=== PATIENT | male | born 1940 | race Caucasian/White ===

== ENCOUNTER 2018-05-21 18:38 | Inpatient (IN) | payer MEDICARE, MEDICAID ==
[~2018-05-21] VITALS: Ht 170.2 cm; Wt 80.0 kg
[~2018-05-21 18:38] MED LIST: ACET-820 PO; ACET325T33 PO; AMIO200T4 PO; AMIO400T5 PO; ASPI-817 PO; CHOL200056 PO; DIGO125T19 PO; FURO20TA3 PO; MAGN400T28 PO; METO-335 PO; PANT40TA3 PO; POTA10TA37 PO; TEST1.25 TD; TRAZ-111 PO; WARF2.5T PO; WARF5TAB PO
[2018-05-21] MEDS ORDERED: ACETAMINOPHEN 325 MG TAB PO PRN ×2 (19:00→22:08)
[2018-05-21] MEDS ORDERED: MAGNESIUM HYDROXIDE 30ML CUP PO PRN (19:00)
[2018-05-21] MEDS ORDERED: PENDING SANTYL ORDER FOR WOUND CARE XX PRN (19:00)
[2018-05-21] MEDS ORDERED: BISACODYL 10 MG SUPP PR PRN (19:00)
[2018-05-21] MEDS ORDERED: LACTULOSE 30ML CUP PO PRN (19:00)
--- NOTE | 2018-05-21 19:39 | NUR ---
Patient Admitted from [facility]. patient is alert and breathing even. no SOB. no c/o pain at this time. Verified rehab orders with Dr. Dejesus and all meds verified with Dr. Swanson (Hospitalist).
[2018-05-21 20:00] VITALS: BP 119/63; PULSE 119; RESP 18
[2018-05-21] MEDS ORDERED: DOCUSATE SODIUM 100 MG CAP PO SCH (21:00)
[2018-05-21 21:15] VITALS: Ht 170.2 cm; Wt 80.0 kg
[2018-05-21] MEDS ORDERED: HYDROCODONE/APAP (5/325) TAB PO PRN (22:08)
[2018-05-21] MEDS ORDERED: ONDANSETRON 4 MG INJ IV PRN (22:08)
[2018-05-21] MEDS ORDERED: NALOXONE (0.4 MG/ML) INJ IV PRN (22:08)
[2018-05-21] MEDS ORDERED: NACL 0.9% 3 ML SYG IV SCH (22:08)
[2018-05-21] MEDS ORDERED: morphine 4 MG/ML VIAL IV PRN (22:08)
[2018-05-21] MEDS: morphine SULFATE/PF (2 MG/2 ML) SYG IV PRN (22:43)
[2018-05-21] MEDS: SENNA TAB PO SCH (22:43)
[2018-05-22 02:06] VITALS: BP 141/71; PULSE 63; RESP 18
[2018-05-22] MEDS: PANTOPRAZOLE (EC) 40 MG TAB PO SCH (06:32)
--- NOTE | 2018-05-22 07:00 | NUR ---
End of Shift Note During the shift. Assessment was done. He is cooperative during the assessment. Photos taken for skin assessment. Wound consult needed. Pain medication given an it was effective. He slept well. Bed on lowest position, side rails up 2x, bed alarm on. Call light within reach. will continue to monitor.
[2018-05-22 07:30] VITALS: BP 169/74; PULSE 84; RESP 18
[2018-05-22] MEDS: AMIODARONE 200 MG TAB PO SCH (08:05)
[2018-05-22] MEDS: morphine SULFATE/PF (2 MG/2 ML) SYG IV PRN ×4 (08:05→22:55)
[2018-05-22] MEDS: DOCUSATE SODIUM 100 MG CAP PO SCH ×2 (08:06→21:12)
[2018-05-22] MEDS: METOPROLOL (XL) 25 MG TAB PO SCH ×2 (08:06→21:12)
[2018-05-22] MEDS: ENOXAPARIN 40 MG/0.4 ML SYG SC SCH (08:07)
--- NOTE | 2018-05-22 08:43 | PN ---
DATE: 05/22/2018 SUBJECTIVE: The patient was transferred to acute rehabilitation. No other acute events noted. OBJECTIVE: VITAL SIGNS: Blood pressure is 141/71, respiration 18, pulse 63, temperature 97.9. HEENT: Head is normocephalic. NECK: Supple. HEART: Regular rate. LUNGS: Show diminished breath sounds at base. ABDOMEN: Soft, nontender to palpation without rebound or guarding. EXTREMITIES: Negative for clubbing, cyanosis, no edema. DERMATOLOGIC: No rashes. MUSCULOSKELETAL: No joint effusions. NEUROLOGIC: No change in exam. MEDICATIONS: Reviewed. LABORATORY DATA: Pending. ASSESSMENT AND PLAN: 1. Nonoliguric acute kidney injury with unknown baseline creatinine. Renal function is improved, et iology secondary to hemodynamics. Will continue to monitor. 2. Anemia. Continue monitoring hemoglobin and hematocrit levels. Check iron panel. 3. Mineral bone disorder, monitor calcium and phosphorus levels. 4. Alkalosis, resolved. 5. Status post left hip arthroplasty. Continue physical therapy. 6. Hypertension. Continue blood pressure regimen. 7. Arrhythmia. Continue medical management. 8. Hypomagnesemia. Continue to monitor and replete. Dictated By: CHARLY WSAHINGTON DO NR/NTS Conf#: [id number] DID#: [id number] CC: ASLHEY SHAH MD;*EndCC*
[2018-05-22] MEDS: BISACODYL (EC) 5 MG TAB PO PRN (09:25)
[2018-05-22 14:00] VITALS: BP 115/60; PULSE 71; RESP 20
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
[2018-05-22] MEDS: CIPROFLOXACIN 500 MG TAB PO SCH (17:14)
[2018-05-22] MEDS: WARFARIN 5 MG TAB PO SCH (17:14)
[2018-05-22] MEDS: ASCORBIC ACID 500 MG TAB PO SCH (17:14)
[2018-05-22 19:43] VITALS: BP 140/66; PULSE 88; RESP 18
[2018-05-22] MEDS: SENNA TAB PO SCH (21:00)
[2018-05-22] MEDS ORDERED: CIPROFLOXACIN 500 MG TAB PO SCH (22:12)
[2018-05-23 02:00] VITALS: BP 122/71; RESP 18
[2018-05-23] MEDS: CIPROFLOXACIN 500 MG TAB PO SCH ×2 (06:11→17:47)
[2018-05-23] MEDS: PANTOPRAZOLE (EC) 40 MG TAB PO SCH (06:11)
[2018-05-23 07:00] VITALS: BP 152/70; PULSE 66; RESP 18
[2018-05-23] MEDS: morphine SULFATE/PF (2 MG/2 ML) SYG IV PRN ×4 (07:03→21:08)
--- NOTE | 2018-05-23 08:12 | NUR ---
Pt slept well during night hours, c/o pain over left hip, Inj.Morphine 3mg IV Q3hrs prn pain x 2 times given. No other complaints noted. Vital signs stable. Pt able to turn position by self with assist. Turned position as per pt's comfort. Left hip dressing dry and intact. Continent for bladder and bowel, uses urinal for voiding, no BM noted. Pt is on low air loss mattress. IV on the left wrist, patent, flushing good, no s/s of infiltration noted. Bed alarm activated for safety, call light and bedside table within reach.
--- NOTE | 2018-05-23 10:01 | PN ---
DATE: 05/23/2018 SUBJECTIVE: The patient is stable. No events overnight. No fevers, chills, nausea, vomiting. OBJECTIVE: VITAL SIGNS: Blood pressure 122/71, respiration 18, pulse 88, temperature 98.3. HEENT: Head is normocephalic. NECK: Supple. HEART: Regular rate. LUNGS: Show diminished breath sounds at the base. ABDOMEN: Soft, nontender to palpation without rebound or guarding. EXTREMITIES: Negative for clubbing, cyanosis, no edema. DERMATOLOGIC: No rashes. MUSCULOSKELETAL: No joint effusion. NEUROLOGIC: No change in exam. MEDICATIONS: Reviewed. LABORATORY DATA: From 05/23/2018 and 05/22/2018 was reviewed. ASSESSMENT AND PLAN: 1. Nonoliguric acute previously unknown baseline creatinine, probable chronic kidney disease. Renal function has improved. Creatinine is stabilized around 1.2 mg/dL. At this point, continue current treatment plan, supportive care, renally dose all meds. 2. Anemia. Continue to monitor hemoglobin and hematocrit levels. 3. Mineral bone disorder. Monitor calcium and phosphorus levels. 4. Status post left knee arthroplasty. Continue physical therapy. 5. Hypertension. Continue blood pressure regimen. 6. Arrhythmia, continue medical management. 7. Hypomagnesemia. Continue to monitor and replete. Dictated By: CHARLY WASHINGTON DO NR/NTS Conf#: [id number] DID#: [id number] CC: ASHLEY SHAH MD;*EndCC*
[2018-05-23] MEDS: MULTIVITAMINS/MINERALS TAB PO SCH (10:21)
[2018-05-23] MEDS: FOLIC ACID 1 MG TAB PO SCH (10:22)
[2018-05-23] MEDS: DOCUSATE SODIUM 100 MG CAP PO SCH ×2 (10:22→21:07)
[2018-05-23] MEDS: ZINC SULFATE 220 MG CAP PO SCH (10:22)
[2018-05-23] MEDS: AMIODARONE 200 MG TAB PO SCH (10:22)
[2018-05-23] MEDS: METOPROLOL (XL) 25 MG TAB PO SCH ×2 (10:23→21:00)
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
[2018-05-23] MEDS: OXYCODONE/ACETAMINOPHEN (10/325) TAB PO PRN (12:42)
[2018-05-23 14:00] VITALS: BP 94/52; PULSE 61; RESP 18
[2018-05-23] MEDS: ENOXAPARIN 40 MG/0.4 ML SYG SC SCH (15:12)
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
[2018-05-23] MEDS: ASCORBIC ACID 500 MG TAB PO SCH (17:47)
[2018-05-23] MEDS: WARFARIN 2.5 MG TAB PO SCH (17:48)
[2018-05-23 19:27] VITALS: BP 119/58; PULSE 59; RESP 19
[2018-05-23] MEDS: SENNA TAB PO SCH (21:07)
[2018-05-23] MEDS: BALSAM PERU/CASTOR OIL 60 GM TUBE TOP SCH (22:45)
[2018-05-24 02:00] VITALS: BP 131/68; PULSE 90; RESP 19
[2018-05-24] MEDS: morphine 4 MG/ML VIAL IV PRN ×5 (02:42→20:23)
[2018-05-24] MEDS: PANTOPRAZOLE (EC) 40 MG TAB PO SCH (05:47)
[2018-05-24] MEDS: CIPROFLOXACIN 500 MG TAB PO SCH ×2 (05:47→18:57)
--- NOTE | 2018-05-24 06:57 | NUR ---
Pt stable with no acute distress noted. Due medications given and all needs attended. Pain medications given for pain with relief. Pt continent of both bowel and bladder and able to use urinal. Safety measures in place. Hourly rounding made. Bed alarm activated for safety. bed side rails up and call light within pt's reach.
[2018-05-24 07:00] VITALS: BP 142/61; PULSE 61; RESP 16
--- NOTE | 2018-05-24 08:23 | PN ---
DATE: 05/24/2018 SUBJECTIVE: The patient is stable, no events overnight. OBJECTIVE: VITAL SIGNS: Blood pressure is 131/68, respiration 19, pulse 90, temperature 98.4. HEENT: Head is normocephalic. NECK: Supple. HEART: Regular rate. LUNGS: Show diminished breath sounds at base. ABDOMEN: Soft, nontender to palpation without rebound or guarding. EXTREMITIES: Negative for clubbing, cyanosis, no edema. DERMATOLOGIC: No rashes. MUSCULOSKELETAL: No joint effusion. NEUROLOGIC: No change in exam. MEDICATIONS: Reviewed. LABORATORY DATA: Has been reviewed. ASSESSMENT AND PLAN: 1. Nonoliguric acute kidney injury with unknown baseline creatinine, possible chronic kidney disease . Renal function is improved. Creatinine stabilized around 1.1 and 1.2 mg/dL. At this point, jocy usltanae current treatment plans, supportive care, renally dose all meds. 2. Anemia. Monitor hemoglobin and hematocrit levels. 3. Mineral bone disorder. Monitor calcium and phosphorus levels. 4. Status post left hip arthroplasty. Continue physical therapy. 5. Hypertension. Continue current blood pressure regimen. 7. Arrhythmia. Continue medical management. 8. Hypomagnesemia, improved. We will see the patient as needed. Dictated By: CHARLY WASHINGTON DO NR/NTS Conf#: [id number] DID#: [id number] CC: ASHLEY SHAH MD;*EndCC*
[2018-05-24] MEDS: DOCUSATE SODIUM 100 MG CAP PO SCH ×2 (08:59→20:48)
[2018-05-24] MEDS: FOLIC ACID 1 MG TAB PO SCH (09:00)
[2018-05-24] MEDS: METOPROLOL (XL) 25 MG TAB PO SCH ×2 (09:00→20:49)
[2018-05-24] MEDS: AMIODARONE 200 MG TAB PO SCH (09:00)
[2018-05-24] MEDS: ZINC SULFATE 220 MG CAP PO SCH (09:00)
[2018-05-24] MEDS: MULTIVITAMINS/MINERALS TAB PO SCH (09:01)
[2018-05-24] MEDS: ENOXAPARIN 40 MG/0.4 ML SYG SC SCH (09:05)
[2018-05-24] MEDS: BALSAM PERU/CASTOR OIL 60 GM TUBE TOP SCH ×2 (09:05→20:49)
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
[2018-05-24] MEDS: OXYCODONE/ACETAMINOPHEN (10/325) TAB PO PRN ×2 (13:23→18:58)
[2018-05-24 14:00] VITALS: BP 105/53; PULSE 80; RESP 18
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
[2018-05-24] MEDS: ASCORBIC ACID 500 MG TAB PO SCH (17:14)
--- NOTE | 2018-05-24 18:00 | NUR ---
Nursing Notes: patient seen by Dr. John Swanson this afternoon, all lab test MD was aware , No new orders
[2018-05-24] MEDS: WARFARIN 5 MG TAB PO SCH (18:57)
--- NOTE | 2018-05-24 19:00 | NUR ---
Nursing Notes: surgical incision dressing remain dry and intact. RN endorsed to Sangeetha ( RN- Surveillance Sensor Officer ) to report to the incoming RN ( AM Shift ) that patient needs incision photograph which can be done if dressing is soiled or saturated.
[2018-05-24 19:51] VITALS: BP 162/88; PULSE 88; RESP 18
[2018-05-24] MEDS: SENNA TAB PO SCH (20:48)
[2018-05-24] MEDS ORDERED: morphine SULFATE/PF (2 MG/2 ML) SYG IV PRN (23:32)
[2018-05-25 02:00] VITALS: BP 132/72; PULSE 79; RESP 18
[2018-05-25] MEDS: OXYCODONE/ACETAMINOPHEN (10/325) TAB PO PRN (03:51)
--- NOTE | 2018-05-25 06:30 | NUR ---
Slept on and off. Medicated for left hip pain prn with good effect. Voiding well using urinal. Needs attended. Call light within reached, bed alarm is activated. No acute distress noted.
[2018-05-25] MEDS: PANTOPRAZOLE (EC) 40 MG TAB PO SCH (07:06)
[2018-05-25] MEDS: CIPROFLOXACIN 500 MG TAB PO SCH ×2 (07:06→17:00)
[2018-05-25] MEDS: morphine 4 MG/ML VIAL IV PRN ×4 (07:27→17:12)
[2018-05-25 07:30] VITALS: BP 130/60; PULSE 55; RESP 18
[2018-05-25] MEDS: BALSAM PERU/CASTOR OIL 60 GM TUBE TOP SCH ×2 (08:17→20:22)
[2018-05-25] MEDS: FOLIC ACID 1 MG TAB PO SCH (08:18)
[2018-05-25] MEDS: MULTIVITAMINS/MINERALS TAB PO SCH (08:18)
[2018-05-25] MEDS: DOCUSATE SODIUM 100 MG CAP PO SCH ×2 (08:18→20:22)
[2018-05-25] MEDS: AMIODARONE 200 MG TAB PO SCH (08:22)
[2018-05-25] MEDS: METOPROLOL (XL) 25 MG TAB PO SCH ×2 (09:00→20:22)
[2018-05-25] MEDS: ZINC SULFATE 220 MG CAP PO SCH (10:05)
[2018-05-25] MEDS: ENOXAPARIN 40 MG/0.4 ML SYG SC SCH (10:08)
[2018-05-25 11:41] VITALS: BP 98/66; PULSE 63
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
[2018-05-25 14:00] VITALS: BP 106/54; PULSE 62; RESP 18
[2018-05-25] MEDS: ASCORBIC ACID 500 MG TAB PO SCH (17:01)
[2018-05-25] MEDS: WARFARIN 2.5 MG TAB PO SCH (17:48)
--- NOTE | 2018-05-25 18:44 | NUR ---
Belén held due to low BP today, but VSS. Participated in therapies. Left hip dressing C/D/I; not changed per Dr. Castaneda's order. Coumadin 2.5mg given per order. Pt is in agreement with plan of care.
[2018-05-25 19:50] VITALS: BP 119/65; PULSE 68; RESP 18
[2018-05-25] MEDS: SENNA TAB PO SCH (20:22)
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
[2018-05-26] MEDS: morphine 4 MG/ML VIAL IV PRN ×7 (01:39→20:52)
[2018-05-26 02:00] VITALS: BP 128/67; PULSE 64; RESP 18
--- NOTE | 2018-05-26 05:24 | NUR ---
Pt stable with no acute distress noted. Due medications given and all needs attended. Pt slept on and off at night due to left hip pain. Pain medications given for pain with relief. Pt continent of both bowel and bladder and able to use urinal. Safety measures in place. Hourly rounding made. Bed alarm activated for safety. bed side rails up and call light within pt's reach.
[2018-05-26] MEDS: CIPROFLOXACIN 500 MG TAB PO SCH ×2 (06:07→17:04)
[2018-05-26] MEDS: PANTOPRAZOLE (EC) 40 MG TAB PO SCH (06:07)
[2018-05-26 07:00] VITALS: BP 122/60; PULSE 67; RESP 18
[2018-05-26] MEDS: METOPROLOL (XL) 25 MG TAB PO SCH ×2 (08:16→21:00)
[2018-05-26] MEDS: FOLIC ACID 1 MG TAB PO SCH (08:16)
[2018-05-26] MEDS: ZINC SULFATE 220 MG CAP PO SCH (08:16)
[2018-05-26] MEDS: AMIODARONE 200 MG TAB PO SCH (08:16)
[2018-05-26] MEDS: MULTIVITAMINS/MINERALS TAB PO SCH (08:16)
[2018-05-26] MEDS: DOCUSATE SODIUM 100 MG CAP PO SCH ×2 (08:16→20:44)
[2018-05-26] MEDS: BALSAM PERU/CASTOR OIL 60 GM TUBE TOP SCH ×2 (08:17→20:45)
[2018-05-26] MEDS: ENOXAPARIN 40 MG/0.4 ML SYG SC SCH (08:18)
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
[2018-05-26 14:00] VITALS: BP 113/59; PULSE 60; RESP 18
[2018-05-26] MEDS: ASCORBIC ACID 500 MG TAB PO SCH (17:04)
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
[2018-05-26] MEDS: WARFARIN 2.5 MG TAB PO SCH (17:23)
--- NOTE | 2018-05-26 17:54 | NUR ---
Patient is alert and breathing even. no SOB. patient c/o pain on left hip s/p surgery. Morphine IV given and was effective. patient with incontinent dermatitis with dry macerated skin tissue applied calazime as ordered. left heel dti dressing change done. treatment done as ordered. patient is cooperative during care.
[2018-05-26 19:50] VITALS: BP 96/52; PULSE 55; RESP 18
[2018-05-26] MEDS: SENNA TAB PO SCH (20:44)
[2018-05-27] VITALS (9 sets, daily range): BP systolic 98–135; BP diastolic 50–65; PULSE 50–66; RESP 16–20
[2018-05-27] MEDS: morphine 4 MG/ML VIAL IV PRN (00:35)
--- NOTE | 2018-05-27 06:00 | NUR ---
End of Shift Note During the shift. Morphine, pain medication administered 2x thrue the shift. They were effective. Pt slept around 2 AM. At 0600, pt was too sleepy to take his medicines but still taken them. Bed on lowest position, side rails up 2x, bed alarm on. Call light within reach. will continue to monitor.
[2018-05-27] MEDS: CIPROFLOXACIN 500 MG TAB PO SCH ×3 (06:17→21:04)
[2018-05-27] MEDS: PANTOPRAZOLE (EC) 40 MG TAB PO SCH (06:17)
--- NOTE | 2018-05-27 07:54 | PN ---
DATE: 05/27/2018 SUBJECTIVE: The patient is stable, no acute events noted overnight. No hemoptysis, hematemesis, or hematochezia. OBJECTIVE: VITAL SIGNS: Blood pressure is 98/50, respirations 18, pulse 71, temperature 97.9. HEENT: Head is normocephalic. NECK: Supple. HEART: Regular rate. LUNGS: Show diminished breath sounds at the base. ABDOMEN: Soft, nontender to palpation, no rebound or guarding. EXTREMITIES: Negative for clubbing, cyanosis, no edema. DERMATOLOGIC: No rashes. MUSCULOSKELETAL: No joint effusion. NEUROLOGIC: No change in exam. MEDICATIONS: Reviewed. LABORATORY DATA: On 05/26/2018, sodium 139, potassium 4.1, BUN 25, creatinine 1.31. ASSESSMENT AND PLAN: 1. Nonoliguric acute kidney injury with unknown baseline creatinine, possible chronic kidney disease . Etiology of renal function is secondary to hemodynamics. Creatinine is fluctuating. Last creatin ine was 1.3 mg/dL, possibly the patient's baseline. At this point, we will continue medical manageme nt. Repeat renal panel, monitor renal function closely. 2. Anemia. Continue to monitor hemoglobin and hematocrit levels. 3. Mineral bone disorder, monitor calcium and phosphorus levels. 4. Status post left hip arthroplasty. 5. Hypertension. Blood pressure is well controlled. Monitor closely for hypertensive episodes. We will place parameters on blood pressure medications. 6. Arrhythmia. Continue medical management. The patient is on Coumadin per primary team. 7. Hypomagnesemia, improved. 8. Diastolic heart failure, currently compensated. Dictated By: CHARLY WASHINGTON DO NR/NTS Conf#: [id number] DID#: [id number] CC: GALILEA CORDOBA MD; ASHLEY SHAH MD;*EndCC*
[2018-05-27] MEDS: FOLIC ACID 1 MG TAB PO SCH (09:00)
[2018-05-27] MEDS: MULTIVITAMINS/MINERALS TAB PO SCH (09:00)
[2018-05-27] MEDS: DOCUSATE SODIUM 100 MG CAP PO SCH ×2 (09:00→21:05)
[2018-05-27] MEDS: BALSAM PERU/CASTOR OIL 60 GM TUBE TOP SCH ×2 (09:00→21:05)
[2018-05-27] MEDS: ZINC SULFATE 220 MG CAP PO SCH (09:00)
[2018-05-27] MEDS: AMIODARONE 200 MG TAB PO SCH (09:00)
[2018-05-27] MEDS: ENOXAPARIN 40 MG/0.4 ML SYG SC SCH (09:00)
[2018-05-27] MEDS: METOPROLOL (XL) 25 MG TAB PO SCH ×2 (09:00→21:00)
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
--- NOTE | 2018-05-27 12:38 | NUR ---
Nursing Notes: patient received sleeping soundly, not in any respiratory distress, VS was checked - stable ( see VS record ) Dr. Dejesus and Dr. Bunch seen patient and informed that patient is lethargic this morning and @ 1000H remain sleepy but this time easily arousable. Dr. Bunch will review patient's medication. Dr. Dejesus discontinue the Morphine IV PRN medication. Will continue to monitor patient's condition.
[2018-05-27] MEDS ORDERED: OXYCODONE/ACETAMINOPHEN (5/325) TAB PO PRN (13:00)
--- NOTE | 2018-05-27 14:02 | PN ---
Date/Time of Note Date/Time of Note DATE: 05/27/18 TIME: 14:00 Objective Vital Signs Date Temp Pulse Resp B/P (MAP) Pulse Ox O2 O2 Flow FiO2 Time Delivery Rate 05/27/18 66 18 135/58 99 Nasal 10:00 (83) Cannula 05/27/18 96.6 07:30 Intake and Output 05/26/18 05/26/18 05/27/18 1515:00 23:00 07:00 IntakeIntake Total 2700 ml OutputOutput Total 950 ml BalanceBalance 1750 ml Exam Physical Exam: Pulm-cta Abd-soft BOWEL- Cont BLADDER-Cont SKIN- intact OT- DRESSING- min/mod BATHING-min/mod TOILETING-min/mod PT- BED MOBILITY-mod TRANSFERS-mod AMBULATION-mod 15 feet A/P- Interdisciplinary team conference held today. Please see interdisciplinary sheet. Working toward d.c. on 06/06 with post discharge follow up of physical therapy, occupational therapy. Results/Medications Result Diagram: 05/26/18 0641 05/26/18 0641 Results 24 hrs Laboratory Tests Test 05/27/18 06:43 05/27/18 09:44 Prothrombin Time 13.7 Prothrombin Time Ratio 1.1 INR International Normalized Ratio 1.04 Bedside Glucose 101 Medications Current Medications Senna (Senokot) 1 tab HS PO Last administered on 05/26/18at 20:44; Admin Dose 1 TAB; Start 05/21/18 at 21:00 Magnesium Hydroxide (Milk Of Mag) 30 ml BID PRN PO CONSTIPATION Last administe red on 05/21/18at 22:42; Admin Dose 30 ML; Start 05/21/18 at 19:00 Lactulose (Enulose) 20 gm DAILY PRN PO CONSTIPATION; Start 05/21/18 at 19:00 Bisacodyl (Dulcolax Supp) 10 mg DAILY PRN [place] CONSTIPATION; Start 05/21/18 at 19:00 Acetaminophen (Tylenol Tab) 650 mg Q4H PRN PO PAIN; Start 05/21/18 at 19:00 Miscellaneous Information (Pending [facility] Order For Wound Care) This patient moreno... PRN PRN XX wound; Start 05/21/18 at 19:00 IV Flush (NS 3 ml) 3 ml PER PROTOCOL IV ; Start 05/21/18 at 22:08 Ondansetron HCl (Zofran Inj) 4 mg Q6H PRN IV NAUSEA AND/OR VOMITING; Start 05/21/18 at 22:08 Bisacodyl (Dulcolax) 5 mg DAILY PRN PO CONSTIPATION Last administered on 05/22/18 09:25; Admin Dose 5 MG; Start 05/21/18 at 22:08 Pantoprazole (Protonix Tab) 40 mg DAILY@0600 PO Last administered on 05/27/18 06:17; Admin Dose 40 MG; Start 05/21/18 at 22:08 Metoprolol Succinate (Toprol Xl) 25 mg BID PO Last administered on 05/26/18 08:16; Admin Dose 25 MG; Start 05/21/18 at 22:08 Amiodarone HCl (Cordarone) 200 mg DAILY PO Last administered on 05/26/18 08:16; Admin Dose 200 MG; Start 05/21/18 at 22:08 Naloxone HCl (Narcan) 0.2 mg Q2M PRN IV DECREASED REPIRATORY RATE; Start 05/21/18 at 22:08 Docusate Sodium (Colace) 100 mg BID PO Last administered on 05/26/18at 20:44; Admin Dose 100 MG; Start 05/21/18 at 22:08 Enoxaparin Sodium (Lovenox) 40 mg DAILY SC Last administered on 05/26/18 08:18; Admin Dose 40 MG; Start 05/21/18 at 22:08 Warfarin Sodium (Coumadin) 2.5 mg SuTuThSa@1700 PO Last administered on 05/26/18 17:23; Admin Dose 2.5 MG; Start 05/23/18 at 17:00 Warfarin Sodium (Coumadin) 5 mg MoWeFr@1700 PO Last administered on 05/24/18at 18:57; Admin Dose 5 MG; Start 05/22/18 at 17:00 Ciprofloxacin (Cipro) 500 mg BID@06,18 PO Last administered on 05/27/18 06:17; Admin Dose 500 MG; Start 05/22/18 at 18:00; Stop 05/29/18 at 06:01 Multivitamins/ Minerals (Theragran-M) 1 tab DAILY PO Last administered on 05/26/18 08:16; Admin Dose 1 TAB; Start 05/23/18 at 09:00 Ascorbic Acid (Vitamin C) 500 mg WITH DINNER PO Last administered on 05/26/18at 17:04; Admin Dose 500 MG; Start 05/22/18 at 17:35 Zinc Sulfate (Zinc Sulfate) 220 mg DAILY PO Last administered on 05/26/18at 08:16; Admin Dose 220 MG; Start 05/23/18 at 09:00 Folic Acid (Folic Acid) 1 mg DAILY PO Last administered on 05/26/18at 08:16; Admin Dose 1 MG; Start 05/23/18 at 09:00 Oxycodone/ Acetaminophen (Endocet (10/ 325)) 1 tab Q4H PRN PO PAIN LEVEL 7-10 Last administered on 05/25/18at 03:51; Admin Dose 1 TAB; Start 05/23/18 at 13:00 Oxycodone/ Acetaminophen (Percocet (5/ 325)) 1 tab Q4H PRN PO MODERATE PAIN LEVEL 4-6; Start 05/27/18 at 13:00 ASHLEY SHAH MD May 27, 2018 14:02
[2018-05-27] MEDS: WARFARIN 5 MG TAB PO SCH ×2 (17:00→21:17)
[2018-05-27] MEDS: ASCORBIC ACID 500 MG TAB PO SCH (17:35)
--- NOTE | 2018-05-27 19:00 | NUR ---
Nursing Notes: patient fully awake at 1200H, able to ate his lunch, communicate well with staff, denies any pain, then at dinner time patient noted asleep again, but easily arousable then immediately fall asleep. Refused to take his medicine , verbalized he wants to sleep, medication unable to give due to his condition. Endorsed to [facility] Price for further care.
--- NOTE | 2018-05-27 20:00 | NUR ---
Start of Shift Note During the rounds, pt is asleep on bed in fowlers position but easily arousable. Bed on lowest position, side rails up 2x, bed alarm is on and call light is within reach. will continue to monitor
--- NOTE | 2018-05-27 21:00 | NUR ---
Late medications given During the rounds, pt found awake on bed in fowlers position. He is oriented to people, place and situation. He is a bit confused with time. Coumadin 5 mg PO 1 tab and Ciprofloxacin 500 mg PO given as the AM shift nurse wasn't able to give due to the pt was asleep. Pt asked for IV morphine for pain. D/C medication was explained. Instead, Endocet 10/325 mg 1 tab PO given as PRN medication for given. will continue to monitor
[2018-05-27] MEDS: SENNA TAB PO SCH (21:05)
[2018-05-27] MEDS: OXYCODONE/ACETAMINOPHEN (10/325) TAB PO PRN (21:24)
[2018-05-28] MEDS: OXYCODONE/ACETAMINOPHEN (10/325) TAB PO PRN (02:15)
[2018-05-28 02:43] VITALS: BP 104/66; PULSE 78; RESP 18
[2018-05-28] MEDS: PANTOPRAZOLE (EC) 40 MG TAB PO SCH (06:00)
--- NOTE | 2018-05-28 06:00 | NUR ---
End of Shift Note During the shift, Endocet 10/325 mg PO given in 2 occasions, they were effective. Pt slept around 4 AM. At 0600, pt refused his medicine. Bed on lowest position, side rails up 2x, bed alarm on. Call light within reach. will continue to monitor.
[2018-05-28 07:30] VITALS: BP 102/54; PULSE 58; RESP 16
--- NOTE | 2018-05-28 08:27 | PN ---
DATE: 05/28/2018 SUBJECTIVE: The patient is stable, no events overnight. OBJECTIVE: VITAL SIGNS: Blood pressure is 134/58, pulse 78, respirations 20, temperature 98.0. HEENT: Head is normocephalic. NECK: Supple. HEART: Regular rate. LUNGS: Show diminished breath sounds at the base. ABDOMEN: Soft, nontender to palpation without rebound or guarding. EXTREMITIES: Negative for clubbing, cyanosis, no edema. DERMATOLOGIC: No rashes. MUSCULOSKELETAL: No joint effusion. NEUROLOGIC: No change in exam. MEDICATIONS: Reviewed. LABORATORY DATA: Pending. ASSESSMENT AND PLAN: 1. Nonoliguric acute kidney injury with unknown baseline creatinine, possible chronic kidney disease . Etiology of acute kidney injury was secondary to hemodynamics. The patient's creatinine has been fluctuating. At this point, continue current treatment plans, supportive care, renally dose all medi cines. Follow up renal panel. 2. Anemia. Monitor hemoglobin and hematocrit levels. 3. Mineral bone disorder, monitor calcium and phosphorus levels. 4. Status post left hip arthroplasty. Continue physical therapy. 5. Hypertension. Continue current blood pressure regimen. 6. Arrhythmia. Continue medical management. The patient is on Coumadin. 7. History of diastolic heart failure, currently compensated. Continue to monitor. Dictated By: CHARLY WASHINGTON DO NR/NTS Conf#: [id number] DID#: [id number] CC: GALILEA CORDOBA MD; ASHLEY SHAH MD;*EndCC*
[2018-05-28] MEDS: METOPROLOL (XL) 25 MG TAB PO SCH ×2 (09:00→21:00)
--- NOTE | 2018-05-28 09:26 | NUR ---
Pt very sleepy. Responsive to painful stimulus. Vitals Bp 92/48, RR 17/min, HR 60, O2 sat 98%. RN called Dr. Bunch and for order to give NS bolus and Narcan. Order carried out.
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
[2018-05-28] MEDS ORDERED: SOD CHLORIDE 0.9% 500 ML IV ONE ×2 (10:00→13:30)
[2018-05-28] MEDS ORDERED: NALOXONE (0.4 MG/ML) INJ IV ONE (10:00)
--- NOTE | 2018-05-28 10:10 | NUR ---
PT NOTE [id number] Attempted to see pt for PT. Upon arrival, pt noted sleeping. Attempted to wake up with max V/T stim and sternal rub but had difficulty waking up. Pt slightly opens eyes then quickly goes back to sleep. Checked VS 91/47 HR 56bpm SpO2 98%. Tash HUDDLESTON notified that pt was lethargic.
--- NOTE | 2018-05-28 10:42 | NUR ---
Pt woke up few mins. after IV Narcan 0.4 mg given. He asked for blanket and went back to sleep. Bolus IVF infused. Vitals BP 161/77, HR 74/min, RR 18, o2 sat 98%. Pt responsive to painful stimuli. IV heplock. Will continue to monitor vitals. Percocet tablet discontinued.
--- NOTE | 2018-05-28 10:47 | NUR ---
[facility] PT Weekly Summary Dates From: 05/22/18 to 05/28/18 Patient Name: AYANNA SCOTT MR#: [id number] Height: 5 ft 7 in Weight: 176 lbs 5.917 oz 80.000 kg Reason for Visit: L HIP FRACTURE ORIF Precautions: fall risk, Lt WBAT Date: 05/28/18 Time: 1048 User: KASSY RENE Short-term Goals: Bed Mobility Mod A Transfers Mod A with least restrictive device Gait 25ft Mod A FWW WC mobility Min A 50ft Pt making very conservative progress during his stay at [facility]. Pt currently demonstrates DEP for rolling, Max A for bed mobility; Mod A for transfers, SBA for WC mobility [id number], Mod A for gait 15ft using FWW (most recent transfers/WC mobility/gait was on 05/25/18). Barriers: lethargy, low BP, pain, dec activity tolerance. Recommend: manual WC with swing away leg rests, home with HHPT and 24hr assistance. Cont POC and progress as almaz.
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
[2018-05-28 14:00] VITALS: BP 104/57; PULSE 62; RESP 18
[2018-05-28] MEDS: DOCUSATE SODIUM 100 MG CAP PO SCH ×2 (14:30→21:18)
[2018-05-28] MEDS: MULTIVITAMINS/MINERALS TAB PO SCH (14:30)
[2018-05-28] MEDS: FOLIC ACID 1 MG TAB PO SCH (14:30)
[2018-05-28] MEDS: AMIODARONE 200 MG TAB PO SCH (14:40)
[2018-05-28] MEDS: BALSAM PERU/CASTOR OIL 60 GM TUBE TOP SCH ×2 (14:41→21:19)
[2018-05-28] MEDS: ZINC SULFATE 220 MG CAP PO SCH (14:49)
[2018-05-28] MEDS: ASCORBIC ACID 500 MG TAB PO SCH (18:03)
[2018-05-28] MEDS: CIPROFLOXACIN 500 MG TAB PO SCH (18:03)
--- NOTE | 2018-05-28 18:10 | NUR ---
Coumadin pending from pharmacy. Addendum: 05/28/18 at 2042 by GELY RAGLAND RN ENDORSED TO KARO YOUNG TO PLEASE GIVE COUMADIN TO PT.
[2018-05-28 19:58] VITALS: BP 98/52; PULSE 63; RESP 18
[2018-05-28] MEDS: SENNA TAB PO SCH (21:18)
[2018-05-28] MEDS: WARFARIN 2.5 MG TAB PO SCH (21:18)
[2018-05-29 02:01] VITALS: BP 122/63; PULSE 61; RESP 18
--- NOTE | 2018-05-29 06:00 | NUR ---
End of Shift Note During the shift, Pt slept well. At 0600, he was repositioned with no complaints of pain. Bed on lowest position, side rails up 2x, bed alarm on. Call light within reach. will continue to monitor.
[2018-05-29] MEDS: CIPROFLOXACIN 500 MG TAB PO SCH (06:16)
[2018-05-29 07:00] VITALS: BP 124/61; RESP 18
--- NOTE | 2018-05-29 08:26 | PN ---
DATE: 05/29/2018 SUBJECTIVE: The patient is stable, no events overnight. No fevers, chills, nausea, or vomiting. OBJECTIVE: VITAL SIGNS: Blood pressure is 122/63, pulse 63, respirations 18, temperature 98.2. HEENT: Head is normocephalic. NECK: Supple. HEART: Regular rate. LUNGS: Show diminished breath sounds at the base. ABDOMEN: Soft, nontender to palpation without rebound or guarding. EXTREMITIES: Negative for clubbing, cyanosis, no edema. DERMATOLOGIC: No rashes. MUSCULOSKELETAL: No joint effusions. NEUROLOGIC: No change in exam. MEDICATIONS: Reviewed. LABORATORY DATA: Shows a sodium 138, potassium 4.1, chloride 104, BUN 24, creatinine 1.59. White co unt 4.3, hemoglobin 7.9, platelet count is 251. ASSESSMENT AND PLAN: 1. Nonoliguric acute kidney injury with unknown baseline creatinine possibly chronic kidney disease. Etiology of chronic kidney disease is secondary to hemodynamics. The patient's renal function has declined in the last 24 to 48 hours, likely secondary to volume depletion due to decreased p.o. intak e. The patient is status post IV fluids. We will follow up renal panel. We will monitor closely I' s and O's. If the patient continues to have poor p.o. intake we will consider course of maintenance fluid. 2. Anemia. Continue to monitor hemoglobin and hematocrit levels. 3. Mineral bone disorder. Monitor calcium and phosphorus levels. 4. Status post left hip arthroplasty. Continue physical therapy. 5. History of hypertension. The patient now hypotensive to normotensive. The patient is status pos t IV fluids, continue to monitor. 6. Lethargy, possibly due to hemodynamics versus narcotics. Continue to monitor. Medications have been adjusted. 7. Arrhythmia. Continue medical management. The patient remains on Coumadin. 8. History of diastolic heart failure. Monitor I's and O's closely. Dictated By: CHARLY WASHINGTON DO NR/NTS Conf#: [id number] DID#: [id number] CC: GALILEA CORDOBA MD; ASHLEY SHAH MD;*EndCC*
[2018-05-29] MEDS: METOPROLOL (XL) 25 MG TAB PO SCH ×2 (09:00→20:33)
--- NOTE | 2018-05-29 09:23 | NUR ---
PT NOTE Pt agreeable to be seen by PT. Found sitting in WC. Rest VS 116/65 HR 114bpm, Spo2 95%. Pt performed 2ft of gait using FWW but then reported dizziness. Rechecked VS BP 93/58 HR 138bpm SpO2 96%. Pt assisted BTB. Post BP 99/55 HR 104bpm SpO2 98%. RN notified of findings.
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
[2018-05-29] MEDS: MULTIVITAMINS/MINERALS TAB PO SCH (10:21)
[2018-05-29] MEDS: FOLIC ACID 1 MG TAB PO SCH (10:21)
[2018-05-29] MEDS: ZINC SULFATE 220 MG CAP PO SCH (10:21)
[2018-05-29] MEDS: FAMOTIDINE 20 MG TAB PO SCH (10:21)
[2018-05-29] MEDS: DOCUSATE SODIUM 100 MG CAP PO SCH ×2 (10:22→20:33)
[2018-05-29] MEDS: AMIODARONE 200 MG TAB PO SCH (10:22)
[2018-05-29] MEDS: BALSAM PERU/CASTOR OIL 60 GM TUBE TOP SCH ×2 (10:23→20:35)
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
[2018-05-29] MEDS: HYDROCODONE/APAP (5/325) TAB PO PRN ×2 (13:28→19:26)
[2018-05-29 14:00] VITALS: BP 99/56; PULSE 72; RESP 18
[2018-05-29] MEDS: ASCORBIC ACID 500 MG TAB PO SCH (17:41)
[2018-05-29] MEDS: WARFARIN 5 MG TAB PO SCH (17:41)
--- NOTE | 2018-05-29 18:13 | NUR ---
Patient is alert and breathing even. No SOB. patient c/o pain x1 this am. PRN norco given and was effective. Patient s/p left hip surgery. dressing intact with no s/sx of bleeding. no drainage. Patient stated that he feels better today than yesterday. patient is cooperative during care. call light within reach and reminded patient to call when needed help.
--- NOTE | 2018-05-29 18:57 | CONS ---
DATE OF ADMISSION: 05/21/2018 DATE OF CONSULTATION: 05/29/2018 TYPE OF CONSULTATION: Psychological. REFERRING PHYSICIAN: Ashley Rodriguez MD CONSULTING PSYCHOLOGIST: Madhu Montero, PhD REASON FOR CONSULTATION: This consultation was requested by Dr. Anjelica Rodriguez in order to evaluate t he cognitive and emotional functioning of this patient related to his present medical condition. HISTORY OF PRESENT ILLNESS: The patient is a 77-year-old male. The patient had a mechanical fall an d had a left intertrochanteric hip fracture. The patient was eventually cleared medically and sent t o the acute rehabilitation unit for acute multidisciplinary rehabilitation. Prior to the recent even ts, the patient was independent of self-care tasks and mobility. The patient is motivated to get bet ter and does want to return to his previous level of functioning. FAMILY AND SOCIAL HISTORY: The patient is single and lives in an assisted living situation by himsel f. The patient does want to return there after discharge. MEDICATIONS: The patient is currently not on any psychotropic medications. SUBSTANCE USE: The patient reports that he does not smoke. The patient says that he does drink alco hol occasionally. MENTAL STATUS EXAMINATION: APPEARANCE: The patient was seen in bed. He appears to be of average height and overweight. The pa tient has a hitchcock and mustache. The patient is left-handed. BEHAVIOR: The patient was cooperative during the consultation. The patient did attempt to answer al l questions presented to him by the interviewer. MOOD AND AFFECT: The patient reports mood appears to be slightly depressed. The patient does appear to be also slightly anxious. The patient does deny that he really is depressed or anxious, but does say that he is a little frustrated. PERCEPTION: The patient reports no hallucinations or delusions. The patient was alert to person, pl luis e, situation and time. MEMORY AND COGNITION: The patient's memory and cognition appear to be relatively intact. He was abl e to remember recent and remote events. The patient was able to name the hospital. The patient was able to say the month and the year. The patient was able to say who the President of the [employer] is. The patient did know that the present governor was not Brown, but did not remember who replac ed him just recently. The patient was able to spell the word "world" backwards. The patient was constantine ble to do any serial 7 subtractions from 100. INTELLIGENCE: Intelligence appears to fall in the average range. INSIGHT: Fair. JUDGMENT: Fair. THOUGHT CONTENT: The patient is concerned about his present medical condition. The patient does wan t to return to his previous level of functioning. The patient is motivated to try to help himself ge t as well as he can get. DISCUSSION: The patient can likely benefit from some cognitive/behavioral psychotherapy while on the unit. Psychotherapy would focus on his underlying level of frustration about his recent fracture. 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 Thank you very much, Dr. Anjelica Rodriguez, for referring this individual. Please do not hesitate to jo looney if you have additional questions. Dictated By: MADHU MONTERO PHD RK/NO Conf#: [id number] DID#: [id number] CC: GALILEA CORDOBA MD; ASHLEY RODRIGUEZ MD;*EndCC*
[2018-05-29 19:45] VITALS: BP 106/56; PULSE 78; RESP 19
[2018-05-29] MEDS: SENNA TAB PO SCH (20:33)
[2018-05-30 03:09] VITALS: BP 116/60; PULSE 62; RESP 18
[2018-05-30] MEDS: HYDROCODONE/APAP (5/325) TAB PO PRN ×5 (04:21→22:29)
--- NOTE | 2018-05-30 05:43 | NUR ---
PT SLEPT ON OFF DURING THE NIGHT, STILL C/O OF LEFT HIP PAIN 11/13, NORCO PO X2 GIVEN PER REQUEST, PARTIALLY EFFECTIVE. NO ACUTE DISTRESS NOTED. DRESSING ON HIS LEFT HIP IS DRY AND INTACT. TURN AND REPOSITION Q 2 HOURS. ALL NEEDS ATTENDED. FALL PRECAUTION. BED ALARM ON. HOURLY ROUNDING MADE. CALL LIGHT AND TABLE ARE WITHIN REACH.
[2018-05-30 07:30] VITALS: BP 121/57; PULSE 66; RESP 18
--- NOTE | 2018-05-30 08:34 | PN ---
DATE: 05/30/2018 SUBJECTIVE: The patient is stable, no events overnight. No fevers, chills, nausea, or vomiting. OBJECTIVE: VITAL SIGNS: Blood pressure is 116/60, respirations 18, pulse 62, temperature 98.6. HEENT: Head is normocephalic. NECK: Supple. HEART: Regular rate. LUNGS: Show diminished breath sounds at the base. ABDOMEN: Soft, nontender to palpation without rebound or guarding. EXTREMITIES: Negative for clubbing, cyanosis, no edema. DERMATOLOGIC: No rashes. MUSCULOSKELETAL: No joint effusion. NEUROLOGIC: No change in exam. MEDICATIONS: Reviewed. LABORATORY DATA: Shows sodium 143, potassium 3.7, BUN 20, creatinine 1.27. White count 4.5, hemoglo bin 8.1, platelet count is 229. ASSESSMENT AND PLAN: 1. Nonoliguric acute kidney injury with unknown baseline creatinine, possible chronic kidney disease . Etiology of acute kidney injury was secondary to hemodynamics, volume depletion. The patient's re nal function improved after a course of IV fluids. At this point, continue current treatment plan, s upportive care, renally dose all medicines. 2. Chronic kidney disease. The patient's renal function has been fluctuating as stated above. Cont inue disease factor modifications. 3. Anemia. Monitor hemoglobin and hematocrit levels. 4. Mineral bone disorder. Monitor calcium and phosphorus levels. 5. Status post left hip arthroplasty. Continue physical therapy. 6. History of hypertension. The patient is currently normotensive. Continue to monitor. Hold bloo d pressure medication. 7. Lethargy, resolved. Continue to monitor. 8. Arrhythmia. Continue current medical management. 9. History of diastolic heart failure. The patient is currently compensated. Continue to monitor. Dictated By: CHARLY WASHINGTON DO NR/NTS Conf#: [id number] DID#: [id number] CC: GALILEA CORDOBA MD; ASHLEY SHAH MD;*EndCC*
[2018-05-30] MEDS: BALSAM PERU/CASTOR OIL 60 GM TUBE TOP SCH ×2 (09:00→21:00)
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
[2018-05-30] MEDS: FAMOTIDINE 20 MG TAB PO SCH (12:48)
[2018-05-30] MEDS: MULTIVITAMINS/MINERALS TAB PO SCH (12:48)
[2018-05-30] MEDS: ZINC SULFATE 220 MG CAP PO SCH (12:49)
[2018-05-30] MEDS: METOPROLOL (XL) 25 MG TAB PO SCH ×2 (12:49→21:29)
[2018-05-30] MEDS: DOCUSATE SODIUM 100 MG CAP PO SCH ×2 (12:51→21:22)
[2018-05-30] MEDS: AMIODARONE 200 MG TAB PO SCH (12:52)
[2018-05-30 14:00] VITALS: BP 102/57; PULSE 85; RESP 20
[2018-05-30] MEDS: ASCORBIC ACID 500 MG TAB PO SCH (17:59)
[2018-05-30] MEDS: FOLIC ACID 1 MG TAB PO SCH (18:01)
[2018-05-30 19:25] VITALS: BP 110/60; PULSE 68; RESP 18
[2018-05-30] MEDS: SENNA TAB PO SCH (21:00)
[2018-05-30] MEDS: WARFARIN 2.5 MG TAB PO SCH (21:25)
[2018-05-31 02:00] VITALS: BP 118/62; PULSE 72; RESP 18
[2018-05-31] MEDS: HYDROCODONE/APAP (5/325) TAB PO PRN ×6 (02:44→23:58)
--- NOTE | 2018-05-31 05:00 | NUR ---
Pt slept well during night hours, c/o pain over left hip, tablet [place] 5/325mg by mouth Q4hrs prn pain given last night. Offered to turn position last night but pt refused to turn on his sides. He want to lay on his back most of the time. Continent for bladder and bowel, voided in the urinal, no BM noted. Hourly round done and patient care needs met. Left hip precautions, bed alarm activated for safety, bedside table and call light within reach.
--- NOTE | 2018-05-31 05:03 | NUR ---
Pt report given to Racquel HUDDLESTON around 0500am to f/up continuation of care.
--- NOTE | 2018-05-31 06:51 | NUR ---
C/O PAIN ON HIS LEFT HIP 12/14, NORCO 1 TAB PO GIVEN PER REQUEST. NO ACUTE DISTRESS NOTED. ALL NEEDS ATTENDED. CALL LIGHT AND TABLE ARE WITHIN REACH.
[2018-05-31 07:00] VITALS: BP 126/61; PULSE 53; RESP 18
--- NOTE | 2018-05-31 08:18 | PN ---
DATE: 05/31/2018 SUBJECTIVE: The patient is stable, no events overnight. No fevers, chills, nausea, or vomiting. OBJECTIVE: VITAL SIGNS: Blood pressure is 118/62, respirations 18, pulse 72, temperature 97.8. HEENT: Head is normocephalic. NECK: Supple. HEART: Regular rate. LUNGS: Show diminished breath sounds at the base. ABDOMEN: Soft, nontender to palpation without rebound or guarding. EXTREMITIES: Negative for clubbing, cyanosis, no edema. DERMATOLOGIC: No rashes. MUSCULOSKELETAL: No joint effusion. NEUROLOGIC: No change in exam. MEDICATIONS: Reviewed. LABORATORY DATA: Reviewed. ASSESSMENT AND PLAN: 1. Nonoliguric acute kidney injury with unknown baseline creatinine, possible chronic kidney disease . Etiology of acute kidney injury is secondary to hemodynamics. Renal function has been fluctuating but overall improved. At this point, continue current treatment plan, supportive care, renally dose all medicines. 2. Chronic kidney disease. The patient is currently in acute kidney injury as stated above. Contin ue current treatment plan. Continue otherwise disease factor modification. 3. Anemia. Continue to monitor hemoglobin and hematocrit levels. 4. Mineral bone disorder. Monitor calcium and phosphorus levels. 5. Status post left hip arthroplasty. Continue physical therapy. 6. History of hypertension. Continue to monitor. 7. Lethargy, resolved. 8. Arrhythmia. Continue medical management. 9. History of diastolic heart failure. The patient appears compensated. Continue current treatment . Dictated By: CHARLY WASHINGTON DO NR/NTS Conf#: [id number] DID#: [id number] CC: ASHLEY SHAH MD; GALILEA CORDOBA MD;*End*
[2018-05-31] MEDS: FAMOTIDINE 20 MG TAB PO SCH (09:28)
[2018-05-31] MEDS: METOPROLOL (XL) 25 MG TAB PO SCH ×2 (09:28→21:00)
[2018-05-31] MEDS: MULTIVITAMINS/MINERALS TAB PO SCH (09:28)
[2018-05-31] MEDS: DOCUSATE SODIUM 100 MG CAP PO SCH ×2 (09:28→19:58)
[2018-05-31] MEDS: ZINC SULFATE 220 MG CAP PO SCH (09:29)
[2018-05-31] MEDS: AMIODARONE 200 MG TAB PO SCH (09:29)
[2018-05-31] MEDS: FOLIC ACID 1 MG TAB PO SCH (09:29)
[2018-05-31] MEDS: BALSAM PERU/CASTOR OIL 60 GM TUBE TOP SCH ×2 (09:29→20:00)
--- NOTE | 2018-05-31 10:52 | PN ---
Date/Time of Note Date/Time of Note DATE: 05/31/18 TIME: 10:52 Objective Vital Signs Date Temp Pulse Resp B/P (MAP) Pulse Ox O2 O2 Flow FiO2 Time Delivery Rate 05/31/18 98.0 53 18 126/61 99 Room Air 07:00 (82) 05/30/18 2.0 18:32 Intake and Output 05/30/18 05/30/18 05/31/18 1515:00 23:00 07:00 IntakeIntake Total 1100 ml 300 ml OutputOutput Total 980 ml 700 ml BalanceBalance 120 ml -400 ml Results/Medications Result Diagram: 05/30/18 0603 05/30/18 0603 Results 24 hrs Laboratory Tests Test 05/31/18 05:42 Prothrombin Time 18.3 #H Prothrombin Time Ratio 1.4 INR International Normalized Ratio 1.51 Medications Current Medications Senna (Senokot) 1 tab HS PO Last administered on 05/29/18at 20:33; Admin Dose 1 TAB; Start 05/21/18 at 21:00 Magnesium Hydroxide (Milk Of Mag) 30 ml BID PRN PO CONSTIPATION Last administered on 05/21/18at 22:42; Admin Dose 30 ML; Start 05/21/18 at 19:00 Lactulose (Enulose) 20 gm DAILY PRN PO CONSTIPATION; Start 05/21/18 at 19:00 Bisacodyl (Dulcolax Supp) 10 mg DAILY PRN [place] CONSTIPATION; Start 05/21/18 at 19:00 Acetaminophen (Tylenol Tab) 650 mg Q4H PRN PO PAIN; Start 05/21/18 at 19:00 Miscellaneous Information (Pending [facility] Order For Wound Care) This patient moreno... PRN PRN XX wound; Start 05/21/18 at 19:00 IV Flush (NS 3 ml) 3 ml PER PROTOCOL IV ; Start 05/21/18 at 22:08 Ondansetron HCl (Zofran Inj) 4 mg Q6H PRN IV NAUSEA AND/OR VOMITING; Start 05/21/18 at 22:08 Bisacodyl (Dulcolax) 5 mg DAILY PRN PO CONSTIPATION Last administered on 05/22/18at 09:25; Admin Dose 5 MG; Start 05/21/18 at 22:08 Metoprolol Succinate (Toprol Xl) 25 mg BID PO Last administered on 05/31/18 09:28; Admin Dose 25 MG; Start 05/21/18 at 22:08 Amiodarone HCl (Cordarone) 200 mg DAILY PO Last administered on 05/31/18 09:29; Admin Dose 200 MG; Start 05/21/18 at 22:08 Naloxone HCl (Narcan) 0.2 mg Q2M PRN IV DECREASED REPIRATORY RATE; Start 05/21/18 at 22:08 Docusate Sodium (Colace) 100 mg BID PO Last administered on 05/31/18 09:28; Admin Dose 100 MG; Start 05/21/18 at 22:08 Warfarin Sodium (Coumadin) 2.5 mg SuTuThSa@1700 PO Last administered on 05/30/18 21:25; Admin Dose 2.5 MG; Start 05/23/18 at 17:00 Warfarin Sodium (Coumadin) 5 mg MoWeFr@1700 PO Last administered on 05/29/18 17:41; Admin Dose 5 MG; Start 05/22/18 at 17:00 Multivitamins/ Minerals (Theragran-M) 1 tab DAILY PO Last administered on 05/31/18 09:28; Admin Dose 1 TAB; Start 05/23/18 at 09:00 Ascorbic Acid (Vitamin C) 500 mg WITH DINNER PO Last administered on 05/30/18 17:59; Admin Dose 500 MG; Start 05/22/18 at 17:35 Zinc Sulfate (Zinc Sulfate) 220 mg DAILY PO Last administered on 05/31/18 09:29; Admin Dose 220 MG; Start 05/23/18 at 09:00 Folic Acid (Folic Acid) 1 mg DAILY PO Last administered on 05/31/18 09:29; Admin Dose 1 MG; Start 05/23/18 at 09:00 Tramadol HCl (Ultram) 50 mg Q6H PRN PO MODERATE PAIN LEVEL 4-6; Start 05/28/18 at 13:30 Famotidine (Pepcid) 20 mg DAILY PO Last administered on 05/31/18 09:28; Admin Dose 20 MG; Start 05/29/18 at 09:00 Acetaminophen/ Hydrocodone Bitart ([place] (5/325)) 1 tab Q4H PRN PO MODERATE PAIN LEVEL 4-6 Last administered on 05/31/18 06:41; Admin Dose 1 TAB; Start 05/29/18 at 12:30 ASHLEY SHAH MD May 31, 2018 10:52
[2018-05-31] MEDS: traMADol 50 MG TAB PO PRN (13:34)
[2018-05-31 14:00] VITALS: BP 109/55; PULSE 58; RESP 18
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
--- NOTE | 2018-05-31 16:18 | NUR ---
Called the office of Dr. Castaneda regarding patient's incision still with jose ramon. Per traveling secretary MD still at surgery and left a message.
[2018-05-31] MEDS: ASCORBIC ACID 500 MG TAB PO SCH (18:08)
[2018-05-31] MEDS: WARFARIN 5 MG TAB PO SCH (18:08)
[2018-05-31 19:10] VITALS: BP 114/62; PULSE 62; RESP 18
--- NOTE | 2018-05-31 19:50 | NUR ---
Patient alert, oriented and able to make needs known with complaints of pain during the shift and was given pain meds; relief noted. Participated with therapy today. Denies any nausea or vomiting. Call light and bedside table placed within reach. Bed alarm activated for safety and bed placed on lowest position. Due medications given. Needs attended. Endorsed to next shift.
[2018-05-31] MEDS: SENNA TAB PO SCH (19:58)
[2018-06-01 02:00] VITALS: BP 123/60; RESP 18
[2018-06-01] MEDS: HYDROCODONE/APAP (5/325) TAB PO PRN ×2 (04:37→08:51)
--- NOTE | 2018-06-01 05:24 | NUR ---
PATIENT IS ALERT AND ORIENTED. MEDICATED WITH NORCO 1 TAB PO FOR LT HIP PAIN WITH SOME RELIEF. RECREATIONAL ACTIVITIES PROVIDED TO PATIENT; WATCHING TV. CALL LIGHT WITHIN REACH
[2018-06-01 07:00] VITALS: BP 114/56; PULSE 78; RESP 16
[2018-06-01] MEDS: FAMOTIDINE 20 MG TAB PO SCH (08:50)
[2018-06-01] MEDS: DOCUSATE SODIUM 100 MG CAP PO SCH ×2 (08:50→20:47)
[2018-06-01] MEDS: ZINC SULFATE 220 MG CAP PO SCH (08:50)
[2018-06-01] MEDS: FOLIC ACID 1 MG TAB PO SCH (08:50)
[2018-06-01] MEDS: MULTIVITAMINS/MINERALS TAB PO SCH (08:50)
[2018-06-01] MEDS: AMIODARONE 200 MG TAB PO SCH (08:51)
[2018-06-01] MEDS: METOPROLOL (XL) 25 MG TAB PO SCH ×2 (08:53→20:48)
[2018-06-01] MEDS: BALSAM PERU/CASTOR OIL 60 GM TUBE TOP SCH ×2 (08:56→20:46)
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
[2018-06-01] MEDS: traMADol 50 MG TAB PO PRN (13:04)
[2018-06-01 14:00] VITALS: BP 112/55; PULSE 69; RESP 16
[2018-06-01] MEDS: OXYCODONE/ACETAMINOPHEN (5/325) TAB PO PRN ×3 (15:15→23:24)
--- NOTE | 2018-06-01 15:26 | NUR ---
RN NOTES No significant change, Patient is alert and oriented. Medicated with pain medication every 4 hours as requested. pain medication changed by [employer] ENGINEER Coby to Percocet 5-325 mg 1 tablet every 4 hours. Assisted at all times. Kept safe and comfortable. Transferred care to KARO ABREU.
--- NOTE | 2018-06-01 15:30 | NUR ---
Received report from MAISHA RN for continuation of patient's care.
[2018-06-01] MEDS: ASCORBIC ACID 500 MG TAB PO SCH (18:18)
--- NOTE | 2018-06-01 19:06 | NUR ---
End of shift summary note Patient seen not in distress or discomfort this time. Participated with therapy today and was cooperative. Due medications given. Patient complains of pain and was medicated; relief noted. Call light and bedside table placed within reach. Bed alarm activated for safety and bed placed on lowest position. Needs attended and continuous monitoring provided. Will endorse to next shift.
[2018-06-01] MEDS: WARFARIN 2.5 MG TAB PO SCH (19:20)
[2018-06-01 20:05] VITALS: BP 107/59; PULSE 60; RESP 20
[2018-06-01] MEDS: SENNA TAB PO SCH (20:47)
[2018-06-02 02:08] VITALS: BP 122/60; PULSE 56; RESP 18
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
[2018-06-02] MEDS: OXYCODONE/ACETAMINOPHEN (5/325) TAB PO PRN ×5 (03:28→19:53)
--- NOTE | 2018-06-02 06:43 | NUR ---
Pt asleep at this time. Verbalized relief of pain after interventions. Refused HS meds, saying he had 2 loose BM during the day and that he did not want to take the antihypertensive due to previous episode of BP dropping. Needs attended to. Safety precautions in place. Kept comfortable. Encouraged to call for help whenever necessary. Will endorse accordingly.
[2018-06-02 07:00] VITALS: BP 121/62; PULSE 58; RESP 18
[2018-06-02] MEDS ORDERED: MAGNESIUM OXIDE 400 MG TAB PO ONE (08:30)
[2018-06-02] MEDS: ZINC SULFATE 220 MG CAP PO SCH (08:46)
[2018-06-02] MEDS: MULTIVITAMINS/MINERALS TAB PO SCH (08:46)
[2018-06-02] MEDS: FAMOTIDINE 20 MG TAB PO SCH (08:46)
[2018-06-02] MEDS: DOCUSATE SODIUM 100 MG CAP PO SCH ×2 (08:53→21:00)
[2018-06-02] MEDS: METOPROLOL (XL) 25 MG TAB PO SCH ×2 (08:53→21:00)
[2018-06-02] MEDS: AMIODARONE 200 MG TAB PO SCH (08:54)
[2018-06-02] MEDS: FOLIC ACID 1 MG TAB PO SCH (08:54)
--- NOTE | 2018-06-02 11:46 | PN ---
DATE: 06/02/2018 SUBJECTIVE: The patient is stable, no events overnight. No fevers, chills, nausea, vomiting. OBJECTIVE: VITAL SIGNS: Blood pressure 122/60, respiration 18, pulse 56, temperature 98.7. HEENT: Head is normocephalic. NECK: Supple. HEART: Regular rate. LUNGS: Show diminished breath sounds at the base. ABDOMEN: Soft, nontender to palpation without rebound or guarding. EXTREMITIES: Negative for clubbing, cyanosis, no edema. DERMATOLOGIC: No rashes. MUSCULOSKELETAL: No joint effusion. NEUROLOGIC: No change in exam. MEDICATIONS: Reviewed. LABORATORY DATA: Sodium 144, BUN 20, creatinine 1.29, magnesium 1.6. ASSESSMENT AND PLAN: 1. Nonoliguric acute kidney injury with unknown baseline creatinine, possible chronic kidney disease . Etiology of acute kidney injury is secondary to hemodynamics. Renal function has been fluctuating but overall is improved. Creatinine is stabilizing around 1.2 to 1.3 mg/dL. Continue to monitor. 2. Chronic kidney disease. The patient is currently in acute kidney injury as stated above. Continu e current treatment plan, disease factor modification. 3. Hypomagnesemia, replete with magnesium oxide. 4. Anemia. Monitor H and H levels. 5. Mineral bone disorder. Monitor calcium and phosphorus levels. 6. Status post left hip arthroplasty. Continue physical therapy. 7. Hypertension. Continue to monitor. 8. Arrhythmia. Continue medical management. 9. History of diastolic heart failure. The patient appears compensated. Dictated By: CHARLY WASHINGTON DO NR/NTS Conf#: [id number] DID#: [id number] CC: GALILEA CORDOBA MD; ASHLEY SHAH MD;*EndCC*
--- NOTE | 2018-06-02 11:46 | PN ---
Date/Time of Note Date/Time of Note DATE: 06/02/18 TIME: 11:45 Assessment/Plan VTE Prophylaxis Risk score (from Ns)>0 risk: 10 SCD applied (from Nsg): Yes Pharmacological prophylaxis: warfarin tx Lines/Catheters IV Catheter Type (from Nrs): Saline Lock Urinary Cath still in place: No Assessment/Plan Hospital Course SUBJECTIVE: No acute discomfort. OBJECTIVE: Vital signs-see below PHYSICAL EXAM: Constitutional: Well-developed, adequately built, lying in bed comfortably. Psych: nl mood/affect, no complaints Head: atraumatic, normocephalic Eyes: nl conjunctiva, nl sclera ENMT: mucosa pink and moist, nl external ears & nose Neck: non-tender, supple Respiratory: clear to auscultation, normal air movement Cardiovascular: nl pulses, regular rate and rhythm Gastrointestinal: non-tender, soft, bowel sounds active in all 4 quadrants. Musculoskeletal/extremities: LLE surgical site CDI. nl extremities to inspection, motor strength equal bilaterally, no focal deficit. Normal pulses,no cyanosis, no edema. Neurological: Alert oriented 3,nl speech, nl strength Skin: nl turgor ASSESSMENT/PLAN:77 yo male with h/o A Fib, CKD II, chronic diastolic CHF who suffered hip fracture now s/p ORIF Acute left femoral intertrochanteric fracture s/p mechanical fall. - s/p ORIF left hip - Continue PT/OT -Pain control BUDDY on CKD - Stable A Fib: - Continue amiodarone, Lopressor 25 BID, warfarin for AC - daily INR anemia - Stable diastolic heart failure - euvolemic HTN - resume home meds DVT prophylaxis: On warfarin. Patient is seen in collaboration with Dr. Bunch Result Diagram: 05/30/18 0603 06/02/18 0548 Results 24hrs Laboratory Tests Test 06/02/18 05:48 Sodium Level 144 Potassium Level 4.5 Chloride Level 101 Carbon Dioxide Level 31 Anion Gap 12 Blood Urea Nitrogen 20 Creatinine 1.29 H Est Glomerular Filtrat Rate mL/min Glucose Level 93 Calcium Level 9.7 Phosphorus Level 4.1 Magnesium Level 1.6 L Exam/Review of Systems Exam Vitals Vital Signs Date Temp Pulse Resp B/P (MAP) Pulse Ox O2 O2 Flow FiO2 Time Delivery Rate 06/02/18 97.7 58 18 121/62 97 Room Air 07:00 (81) 05/30/18 2.0 18:32 Intake and Output 06/01/18 06/01/18 06/02/18 1515:00 23:00 07:00 IntakeIntake Total 800 ml 800 ml OutputOutput Total 850 ml 350 ml BalanceBalance 800 ml -50 ml -350 ml Results Results 24hrs Laboratory Tests Test 06/02/18 05:48 Sodium Level 144 Potassium Level 4.5 Chloride Level 101 Carbon Dioxide Level 31 Anion Gap 12 Blood Urea Nitrogen 20 Creatinine 1.29 H Est Glomerular Filtrat Rate mL/min Glucose Level 93 Calcium Level 9.7 Phosphorus Level 4.1 Magnesium Level 1.6 L Medications Medication Current Medications Senna (Senokot) 1 tab HS PO Last administered on 05/31/18at 19:58; Admin Dose 1 TAB; Start 05/21/18 at 21:00 Magnesium Hydroxide (Milk Of Mag) 30 ml BID PRN PO CONSTIPATION Last admin istered on 05/21/18at 22:42; Admin Dose 30 ML; Start 05/21/18 at 19:00 Lactulose (Enulose) 20 gm DAILY PRN PO CONSTIPATION; Start 05/21/18 at 19:00 Bisacodyl (Dulcolax Supp) 10 mg DAILY PRN [place] CONSTIPATION; Start 05/21/18 at 19:00 Acetaminophen (Tylenol Tab) 650 mg Q4H PRN PO PAIN; Start 05/21/18 at 19:00 Miscellaneous Information (Pending [facility] Order For Wound Care) This patient moreno... PRN PRN XX wound; Start 05/21/18 at 19:00 IV Flush (NS 3 ml) 3 ml PER PROTOCOL IV ; Start 05/21/18 at 22:08 Ondansetron HCl (Zofran Inj) 4 mg Q6H PRN IV NAUSEA AND/OR VOMITING; Start 05/21/18 at 22:08 Bisacodyl (Dulcolax) 5 mg DAILY PRN PO CONSTIPATION Last administered on 05/22/18at 09:25; Admin Dose 5 MG; Start 05/21/18 at 22:08 Metoprolol Succinate (Toprol Xl) 25 mg BID PO Last administered on 05/31/18 09:28; Admin Dose 25 MG; Start 05/21/18 at 22:08 Amiodarone HCl (Cordarone) 200 mg DAILY PO Last administered on 06/02/18 08:54; Admin Dose 200 MG; Start 05/21/18 at 22:08 Naloxone HCl (Narcan) 0.2 mg Q2M PRN IV DECREASED REPIRATORY RATE; Start 05/21/18 at 22:08 Docusate Sodium (Colace) 100 mg BID PO Last administered on 06/01/18 08:50; Admin Dose 100 MG; Start 05/21/18 at 22:08 Warfarin Sodium (Coumadin) 2.5 mg SuTuThSa@1700 PO Last administered on 06/01/18 19:20; Admin Dose 2.5 MG; Start 05/23/18 at 17:00 Warfarin Sodium (Coumadin) 5 mg MoWeFr@1700 PO Last administered on 05/31/18 18:08; Admin Dose 5 MG; Start 05/22/18 at 17:00 Multivitamins/ Minerals (Theragran-M) 1 tab DAILY PO Last administered on 06/02/18 08:46; Admin Dose 1 TAB; Start 05/23/18 at 09:00 Ascorbic Acid (Vitamin C) 500 mg WITH DINNER PO Last administered on 06/01/18 18:18; Admin Dose 500 MG; Start 05/22/18 at 17:35 Zinc Sulfate (Zinc Sulfate) 220 mg DAILY PO Last administered on 06/02/18 08:46; Admin Dose 220 MG; Start 05/23/18 at 09:00 Folic Acid (Folic Acid) 1 mg DAILY PO Last administered on 06/02/18 08:54; Admin Dose 1 MG; Start 05/23/18 at 09:00 Tramadol HCl (Ultram) 50 mg Q6H PRN PO MODERATE PAIN LEVEL 4-6 Last administered on 06/01/18 13:04; Admin Dose 50 MG; Start 05/28/18 at 13:30 Famotidine (Pepcid) 20 mg DAILY PO Last administered on 06/02/18 08:46; Admin Dose 20 MG; Start 05/29/18 at 09:00 Oxycodone/ Acetaminophen (Percocet (5/ 325)) 1 tab Q4H PRN PO MODERATE PAIN LEV EL 4-6 Last administered on 06/02/18 07:53; Admin Dose 1 TAB; Start 06/01/18 at 13:00 ALEXIS OLIVIA NP Jun 02, 2018 11:46
[2018-06-02] MEDS: BALSAM PERU/CASTOR OIL 60 GM TUBE TOP SCH ×2 (11:51→21:00)
[2018-06-02 14:00] VITALS: BP 109/58; PULSE 65; RESP 18
[2018-06-02] MEDS: WARFARIN 2.5 MG TAB PO SCH (17:00)
[2018-06-02] MEDS ORDERED: WARFARIN 5 MG TAB PO SCH (17:30)
[2018-06-02] MEDS: ASCORBIC ACID 500 MG TAB PO SCH (17:47)
--- NOTE | 2018-06-02 19:00 | NUR ---
End of shift summary note Patient seen not in distress or discomfort; able to verbalize needs with complaints of pain during the shift and was medicated; relief noted. No shortness of breath or difficulty of breathing noted. All due medications given. Recreational activity offered like watching TV. Left heel DTI photo taken and dressing changed. Call light and bedside table placed within reach. Bed alarm activated for safety. Continuous monitoring provided and needs attended. Will endorse to next shift.
[2018-06-02 20:11] VITALS: BP 114/57; PULSE 71; RESP 18
[2018-06-02] MEDS: SENNA TAB PO SCH (21:00)
[2018-06-03 02:00] VITALS: BP 121/60; PULSE 67; RESP 18
[2018-06-03] MEDS: OXYCODONE/ACETAMINOPHEN (5/325) TAB PO PRN ×5 (04:26→21:40)
--- NOTE | 2018-06-03 06:08 | NUR ---
Pt asleep at this time. Verbalized relief of pain after interventions. Refused HS meds. Needs attended to. Safety precautions in place. Kept clean and comfortable. Encouraged to call for help whenever necessary. Frequent checks done. Will endorse accordingly.
--- NOTE | 2018-06-03 06:35 | PN ---
DATE: 06/01/2018 SUBJECTIVE: The patient is stable, no events overnight. OBJECTIVE: VITAL SIGNS: Blood pressure is 123/60, respiration 18, pulse 62, temperature 98.5. HEENT: Head is normocephalic. NECK: Supple. HEART: Regular rate. LUNGS: Show diminished breath sounds at the base. ABDOMEN: Soft, nontender to palpation without rebound or guarding. EXTREMITIES: Negative for clubbing, cyanosis, no edema. DERMATOLOGIC: No rashes. MUSCULOSKELETAL: No joint effusions. NEUROLOGIC: No change in exam. MEDICATIONS: The patient's medications have been reviewed. LABORATORY DATA: Has been reviewed. ASSESSMENT AND PLAN: 1. Nonoliguric acute kidney injury with unknown baseline creatinine, possible chronic kidney disease . Etiology of acute kidney injury is secondary to hemodynamics. Renal function has improved after a course of IV fluids. We will continue to monitor. Encourage p.o. intake. 2. Chronic kidney disease. The patient is currently in acute kidney injury as stated above. Contin ue current treatment plan. Continue disease factor modification. 3. Anemia. Monitor hemoglobin and hematocrit levels. 4. Mineral bone disorder, monitor calcium and phosphorus levels. 5. Status post left hip arthroplasty. Continue physical therapy. 6. Arrhythmia. Continue medical management. 7. History of diastolic heart failure. The patient is compensated. Continue to monitor. 8. Lethargy, resolved. Dictated By: CHARLY WASHINGTON DO NR/NTS Conf#: [id number] DID#: [id number] CC: GALILEA CORDOBA MD;*EndCC*
[2018-06-03 08:00] VITALS: BP 135/64; PULSE 67; RESP 18
[2018-06-03] MEDS: DOCUSATE SODIUM 100 MG CAP PO SCH ×2 (08:47→20:37)
[2018-06-03] MEDS: ZINC SULFATE 220 MG CAP PO SCH (08:47)
[2018-06-03] MEDS: FAMOTIDINE 20 MG TAB PO SCH (08:48)
[2018-06-03] MEDS: MULTIVITAMINS/MINERALS TAB PO SCH (08:48)
[2018-06-03] MEDS: FOLIC ACID 1 MG TAB PO SCH (08:48)
[2018-06-03] MEDS: METOPROLOL (XL) 25 MG TAB PO SCH ×3 (08:48→20:38)
[2018-06-03] MEDS: AMIODARONE 200 MG TAB PO SCH (08:53)
--- NOTE | 2018-06-03 09:11 | PN ---
DATE: 06/03/2018 SUBJECTIVE: The patient is stable, no events overnight. OBJECTIVE: VITAL SIGNS: Blood pressure is 121/60, respirations 18, pulse 67, temperature 97.9. HEENT: Head is normocephalic. NECK: Supple. HEART: Regular rate. LUNGS: Show diminished breath sounds at the base. ABDOMEN: Soft, nontender to palpation. No rebound or guarding. EXTREMITIES: Negative for clubbing, cyanosis, no edema. DERMATOLOGIC: No rashes. MUSCULOSKELETAL: No joint effusion. NEUROLOGIC: No change in exam. MEDICATIONS: The patient's medications have been reviewed. LABORATORY DATA: Reviewed. ASSESSMENT AND PLAN: 1. Nonoliguric acute kidney injury with unknown baseline creatinine, possible chronic kidney disease . Etiology of acute kidney injury is secondary to hemodynamics. Renal function appears to be stabil izing with creatinine of 1.2 to 1.3 mg/dL. Continue current treatment plans, supportive care, renall y dose all medicines. 2. Anemia. Monitor hemoglobin and hematocrit levels. 3. Mineral bone disorder. Monitor calcium and phosphorus levels. 4. Status post left hip arthroplasty. Continue physical therapy. 5. Arrhythmia. Continue current medical management. 6. History of diastolic heart failure. The patient is currently compensated. Continue to monitor. Dictated By: CHARLY WASHINGTON DO NR/NTS Conf#: [id number] DID#: [id number] CC: ASHLEY SHAH MD; GALILEA CORDOBA MD;*End*
--- NOTE | 2018-06-03 11:32 | PN ---
Date/Time of Note Date/Time of Note DATE: 06/03/18 TIME: 11:31 Assessment/Plan VTE Prophylaxis Risk score (from Ns)>0 risk: 9 SCD applied (from Ns): Yes Pharmacological prophylaxis: warfarin tx Lines/Catheters IV Catheter Type (from Nrs): Saline Lock Urinary Cath still in place: No Assessment/Plan Hospital Course SUBJECTIVE: No acute discomfort. OBJECTIVE: Vital signs-see below PHYSICAL EXAM: Constitutional: Well-developed, adequately built, lying in bed comfortably. Psych: nl mood/affect, no complaints Head: atraumatic, normocephalic Eyes: nl conjunctiva, nl sclera ENMT: mucosa pink and moist, nl external ears & nose Neck: non-tender, supple Respiratory: clear to auscultation, normal air movement Cardiovascular: nl pulses, regular rate and rhythm Gastrointestinal: non-tender, soft, bowel sounds active in all 4 quadrants. Musculoskeletal/extremities: LLE surgical site CDI. nl extremities to inspection, motor strength equal bilaterally, no focal deficit. Normal pulses,no cyanosis, no edema. Neurological: Alert oriented 3,nl speech, nl strength Skin: nl turgor ASSESSMENT/PLAN:77 yo male with h/o A Fib, CKD II, chronic diastolic CHF who suffered hip fracture now s/p ORIF Acute left femoral intertrochanteric fracture s/p mechanical fall. - s/p ORIF left hip - Continue PT/OT -Pain control BUDDY on CKD - Stable A Fib: - Continue amiodarone, Lopressor 25 BID, warfarin for AC - Repeat INR in AM to check therapeutic level has achieved or not. anemia - Stable diastolic heart failure - euvolemic HTN - resume home meds DVT prophylaxis: On warfarin. Patient is seen in collaboration with Dr. Auguste Result Diagram: 05/30/18 0603 06/02/18 0548 Exam/Review of Systems Exam Vitals Vital Signs Date Temp Pulse Resp B/P (MAP) Pulse Ox O2 O2 Flow FiO2 Time Delivery Rate 06/03/18 98.1 67 18 135/64 93 Room Air 08:00 (87) 05/30/18 2.0 18:32 Intake and Output 06/02/18 06/02/18 06/03/18 1414:59 22:59 06:59 IntakeIntake Total 1200 ml OutputOutput Total 900 ml 100 ml 100 ml BalanceBalance 300 ml -100 ml -100 ml Medications Medication Current Medications Senna (Senokot) 1 tab HS PO Last administered on 05/31/18 19:58; Admin Dose 1 TAB; Start 05/21/18 at 21:00 Magnesium Hydroxide (Milk Of Mag) 30 ml BID PRN PO CONSTIPATION Last administered on 05/21/18 22:42; Admin Dose 30 ML; Start 05/21/18 at 19:00 Lactulose (Enulose) 20 gm DAILY PRN PO CONSTIPATION; Start 05/21/18 at 19:00 Bisacodyl (Dulcolax Supp) 10 mg DAILY PRN [place] CONSTIPATION; Start 05/21/18 at 19:00 Acetaminophen (Tylenol Tab) 650 mg Q4H PRN PO PAIN; Start 05/21/18 at 19:00 Miscellaneous Information (Pending [facility] Order For Wound Care) This patient moreno... PRN PRN XX wound; Start 05/21/18 at 19:00 IV Flush (NS 3 ml) 3 ml PER PROTOCOL IV ; Start 05/21/18 at 22:08 Ondansetron HCl (Zofran Inj) 4 mg Q6H PRN IV NAUSEA AND/OR VOMITING; Start 05/21/18 at 22:08 Bisacodyl (Dulcolax) 5 mg DAILY PRN PO CONSTIPATION Last administered on 05/22/18 09:25; Admin Dose 5 MG; Start 05/21/18 at 22:08 Metoprolol Succinate (Toprol Xl) 25 mg BID PO Last administered on 05/31/18 09:28; Admin Dose 25 MG; Start 05/21/18 at 22:08 Amiodarone HCl (Cordarone) 200 mg DAILY PO Last administered on 06/03/18 08:53; Admin Dose 200 MG; Start 05/21/18 at 22:08 Naloxone HCl (Narcan) 0.2 mg Q2M PRN IV DECREASED REPIRATORY RATE; Start 05/21/18 at 22:08 Docusate Sodium (Colace) 100 mg BID PO Last administered on 06/03/18 08:47; Admin Dose 100 MG; Start 05/21/18 at 22:08 Warfarin Sodium (Coumadin) 2.5 mg SuTuThSa@1700 PO Last administered on 06/01/18 19:20; Admin Dose 2.5 MG; Start 05/23/18 at 17:00 Warfarin Sodium (Coumadin) 5 mg MoWeFr@1700 PO Last administered on 05/31/18 18:08; Admin Dose 5 MG; Start 05/22/18 at 17:00 Multivitamins/ Minerals (Theragran-M) 1 tab DAILY PO Last administered on 06/03/18 08:48; Admin Dose 1 TAB; Start 05/23/18 at 09:00 Ascorbic Acid (Vitamin C) 500 mg WITH DINNER PO Last administered on 06/02/18 17:47; Admin Dose 500 MG; Start 05/22/18 at 17:35 Zinc Sulfate (Zinc Sulfate) 220 mg DAILY PO Last administered on 06/03/18 08:47; Admin Dose 220 MG; Start 05/23/18 at 09:00 Folic Acid (Folic Acid) 1 mg DAILY PO Last administered on 06/03/18 08:48; Admin Dose 1 MG; Start 05/23/18 at 09:00 Tramadol HCl (Ultram) 50 mg Q6H PRN PO MODERATE PAIN LEVEL 4-6 Last administered on 06/01/18 13:04; Admin Dose 50 MG; Start 05/28/18 at 13:30 Famotidine (Pepcid) 20 mg DAILY PO Last administered on 06/03/18 08:48; Admin Dose 20 MG; Start 05/29/18 at 09:00 Oxycodone/ Acetaminophen (Percocet (5/ 325)) 1 tab Q4H PRN PO MODERATE PAIN LEVEL 4-6 Last administered on 06/03/18 08:47; Admin Dose 1 TAB; Start 06/01/18 at 13:00 ALEXIS OLIVIA NP Jun 03, 2018 11:32
--- NOTE | 2018-06-03 12:20 | PN ---
Date/Time of Note Date/Time of Note DATE: 06/03/18 TIME: 12:20 Objective Vital Signs Date Temp Pulse Resp B/P (MAP) Pulse Ox O2 O2 Flow FiO2 Time Delivery Rate 06/03/18 98.1 67 18 135/64 93 Room Air 08:00 (87) 05/30/18 2.0 18:32 Intake and Output 06/02/18 06/02/18 06/03/18 1515:00 23:00 07:00 IntakeIntake Total 1200 ml OutputOutput Total 900 ml 100 ml 500 ml BalanceBalance 300 ml -100 ml -500 ml Exam INTERDISCIPLINARY TEAM CONFERENCE Physical Exam: Pulm-cta Abd-soft BOWEL- Cont BLADDER-Cont SKIN- improving OT- DRESSING-sba/mod BATHING-sba/mod TOILETING-min/mod PT- BED MOBILITY-cga TRANSFERS-cga AMBULATION-mod 30 A/P- Interdisciplinary team conference held today. Please see interdisciplinary sheet. Working toward d.c. on 06/06 with post discharge follow up of physical therapy, occupational therapy. Results/Medications Result Diagram: 05/30/18 0603 06/02/18 0548 Medications Current Medications Senna (Senokot) 1 tab HS PO Last administered on 05/31/18at 19:58; Admin Dose 1 TAB; Start 05/21/18 at 21:00 Magnesium Hydroxide (Milk Of Mag) 30 ml BID PRN PO CONSTIPATION Last administered on 05/21/18at 22:42; Admin Dose 30 ML; Start 05/21/18 at 19:00 Lactulose (Enulose) 20 gm DAILY PRN PO CONSTIPATION; Start 05/21/18 at 19:00 Bisacodyl (Dulcolax Supp) 10 mg DAILY PRN [place] CONSTIPATION; Start 05/21/18 at 19:00 Acetaminophen (Tylenol Tab) 650 mg Q4H PRN PO PAIN; Start 05/21/18 at 19:00 Miscellaneous Information (Pending [facility] Order For Wound Care) This patient moreno... PRN PRN XX wound; Start 05/21/18 at 19:00 IV Flush (NS 3 ml) 3 ml PER PROTOCOL IV ; Start 05/21/18 at 22:08 Ondansetron HCl (Zofran Inj) 4 mg Q6H PRN IV NAUSEA AND/OR VOMITING; Start 05/21/18 at 22:08 Bisacodyl (Dulcolax) 5 mg DAILY PRN PO CONSTIPATION Last administered on 05/22/18 09:25; Admin Dose 5 MG; Start 05/21/18 at 22:08 Metoprolol Succinate (Toprol Xl) 25 mg BID PO Last administered on 05/31/18 09:28; Admin Dose 25 MG; Start 05/21/18 at 22:08 Amiodarone HCl (Cordarone) 200 mg DAILY PO Last administered on 06/03/18 08:53; Admin Dose 200 MG; Start 05/21/18 at 22:08 Naloxone HCl (Narcan) 0.2 mg Q2M PRN IV DECREASED REPIRATORY RATE; Start 05/21/18 at 22:08 Docusate Sodium (Colace) 100 mg BID PO Last administered on 06/03/18 08:47; Admin Dose 100 MG; Start 05/21/18 at 22:08 Warfarin Sodium (Coumadin) 2.5 mg SuTuThSa@1700 PO Last administered on 06/01/18 19:20; Admin Dose 2.5 MG; Start 05/23/18 at 17:00 Warfarin Sodium (Coumadin) 5 mg MoWeFr@1700 PO Last administered on 05/31/18 18:08; Admin Dose 5 MG; Start 05/22/18 at 17:00 Multivitamins/ Minerals (Theragran-M) 1 tab DAILY PO Last administered on 06/03/18 08:48; Admin Dose 1 TAB; Start 05/23/18 at 09:00 Ascorbic Acid (Vitamin C) 500 mg WITH DINNER PO Last administered on 06/02/18 17:47; Admin Dose 500 MG; Start 05/22/18 at 17:35 Zinc Sulfate (Zinc Sulfate) 220 mg DAILY PO Last administered on 06/03/18 08:47; Admin Dose 220 MG; Start 05/23/18 at 09:00 Folic Acid (Folic Acid) 1 mg DAILY PO Last administered on 06/03/18 08:48; Admin Dose 1 MG; Start 05/23/18 at 09:00 Tramadol HCl (Ultram) 50 mg Q6H PRN PO MODERATE PAIN LEVEL 4-6 Last administered on 06/01/18 13:04; Admin Dose 50 MG; Start 05/28/18 at 13:30 Famotidine (Pepcid) 20 mg DAILY PO Last administered on 06/03/18at 08:48; Admin Dose 20 MG; Start 05/29/18 at 09:00 Oxycodone/ Acetaminophen (Percocet (5/ 325)) 1 tab Q4H PRN PO MODERATE PAIN LEVEL 4-6 Last administered on 06/03/18at 08:47; Admin Dose 1 TAB; Start 06/01/18 at 13:00 ASHLEY SHAH MD Jun 03, 2018 12:20
[2018-06-03] MEDS: BALSAM PERU/CASTOR OIL 60 GM TUBE TOP SCH ×2 (12:54→20:39)
[2018-06-03 14:00] VITALS: BP 113/59; PULSE 72; RESP 18
[2018-06-03] MEDS: ASCORBIC ACID 500 MG TAB PO SCH (17:26)
[2018-06-03] MEDS: WARFARIN 5 MG TAB PO SCH (18:55)
--- NOTE | 2018-06-03 19:00 | NUR ---
Nursing Notes: patient back in bed at 1915H post shower by Aida ( KASIA ), dressing on both heel wet, patient wants both heel to be air dry prior dressing change, endorsed to KARO Vivas left hip incision dry and intact.
--- NOTE | 2018-06-03 19:00 | NUR ---
Nursing Notes: RN called Dr. Castaneda's office and left message to the Staff to call [facility] in order to get ordesr for removal of jose ramon ( due 06/02/18) and change dressing. Dr. Castaneda did not call back, endorsed to KARO Vivas and will follow up tomorrow.
[2018-06-03 20:00] VITALS: BP 98/56; PULSE 68; RESP 18
[2018-06-03] MEDS: SENNA TAB PO SCH (20:37)
[2018-06-04] MEDS: OXYCODONE/ACETAMINOPHEN (5/325) TAB PO PRN ×6 (01:54→21:28)
[2018-06-04 02:00] VITALS: BP 97/54; PULSE 58; RESP 18
--- NOTE | 2018-06-04 06:45 | NUR ---
Slept well. Resp unlabored. Medicated for leg hip pain prn with good effect. Voiding well using urinal. Needs attended. Call light within reached. Bed alarm is activated. No acute distress noted.
[2018-06-04 07:30] VITALS: BP 106/57; PULSE 63; RESP 18
--- NOTE | 2018-06-04 08:20 | PN ---
DATE: 06/04/2018 SUBJECTIVE: The patient is stable, no events overnight. OBJECTIVE: VITAL SIGNS: Blood pressure is 97/54, respirations 18, pulse 58, temperature 97.8. HEENT: Head is normocephalic. NECK: Supple. HEART: Regular rate. LUNGS: Show diminished breath sounds at the base. ABDOMEN: Soft, nontender to palpation without rebound or guarding. EXTREMITIES: Negative for clubbing, cyanosis, no edema. DERMATOLOGIC: No rashes. MUSCULOSKELETAL: No joint effusion. NEUROLOGIC: No change in exam. MEDICATIONS: Reviewed. LABORATORY DATA: Reviewed. ASSESSMENT AND PLAN: 1. Nonoliguric acute kidney injury on top of chronic kidney, previous baseline creatinine of around 1.1 mg/dL. Etiology of current acute kidney injury is secondary to hemodynamics. Renal function dax ears to be stabilizing around creatinine 1.2 to 1.3 mg/dL. At this point, continue current treatment plan, supportive care, renally dose all medicines. 2. Anemia. Continue to monitor hemoglobin and hematocrit levels. 3. Mineral bone disorder, monitor calcium and phosphorus levels. 4. Status post left hip arthroplasty. Continue to monitor. 5. Physical therapy. 6. Arrhythmia. Continue medical management. 7. History of diastolic heart failure. The patient is currently compensated. Continue medical munira gement. Dictated By: CHARLY WASHINGTON DO NR/NTS Conf#: [id number] DID#: [id number] CC: ASHLEY SHAH MD; GALILEA CORDOBA MD;*EndCC*
[2018-06-04] MEDS: METOPROLOL (XL) 25 MG TAB PO SCH ×2 (09:00→21:26)
[2018-06-04] MEDS: FOLIC ACID 1 MG TAB PO SCH (09:00)
[2018-06-04] MEDS: FAMOTIDINE 20 MG TAB PO SCH (09:05)
[2018-06-04] MEDS: AMIODARONE 200 MG TAB PO SCH (09:05)
[2018-06-04] MEDS: ZINC SULFATE 220 MG CAP PO SCH (09:05)
[2018-06-04 09:06] VITALS: BP 108/57; PULSE 75
[2018-06-04] MEDS: MULTIVITAMINS/MINERALS TAB PO SCH (09:06)
[2018-06-04] MEDS: DOCUSATE SODIUM 100 MG CAP PO SCH ×2 (09:07→21:25)
--- NOTE | 2018-06-04 09:08 | NUR ---
Nursing Notes: patient refused Metoprolol tab ( BP Medication ) BP 108/57 , wants only Amiodarone Hydrochloride oral tablet.
--- NOTE | 2018-06-04 10:50 | PN ---
Date/Time of Note Date/Time of Note DATE: 06/04/18 TIME: 10:49 Assessment/Plan VTE Prophylaxis Risk score (from Ns)>0 risk: 9 SCD applied (from Ns): Yes Pharmacological prophylaxis: warfarin tx Lines/Catheters IV Catheter Type (from Nrs): Saline Lock Urinary Cath still in place: No Assessment/Plan Hospital Course SUBJECTIVE: No acute discomfort. OBJECTIVE: Vital signs-see below PHYSICAL EXAM: Constitutional: Well-developed, adequately built, lying in bed comfortably. Psych: nl mood/affect, no complaints Head: atraumatic, normocephalic Eyes: nl conjunctiva, nl sclera ENMT: mucosa pink and moist, nl external ears & nose Neck: non-tender, supple Respiratory: clear to auscultation, normal air movement Cardiovascular: nl pulses, regular rate and rhythm Gastrointestinal: non-tender, soft, bowel sounds active in all 4 quadrants. Musculoskeletal/extremities: LLE surgical site CDI. nl extremities to inspection, motor strength equal bilaterally, no focal deficit. Normal pulses,no cyanosis, no edema. Neurological: Alert oriented 3,nl speech, nl strength Skin: nl turgor ASSESSMENT/PLAN:77 yo male with h/o A Fib, CKD II, chronic diastolic CHF who suffered hip fracture now s/p ORIF Acute left femoral intertrochanteric fracture s/p mechanical fall. - s/p ORIF left hip - Continue PT/OT -Pain control BUDDY on CKD - Stable A Fib: - Continue amiodarone, Lopressor 25 BID, warfarin for AC Subtherapeutic INR -Increase Coumadin to 5 mg daily. -INR level daily anemia - Stable diastolic heart failure - euvolemic HTN - resume home meds DVT prophylaxis: On warfarin. Patient is seen in collaboration with Dr. Auguste Result Diagram: 06/02/18 0548 Results 24hrs Laboratory Tests Test 06/04/18 06:08 Prothrombin Time 19.0 H Prothrombin Time Ratio 1.5 INR International Normalized Ratio 1.58 Exam/Review of Systems Exam Vitals Vital Signs Date Temp Pulse Resp B/P (MAP) Pulse Ox O2 O2 Flow FiO2 Time Delivery Rate 06/04/18 75 108/57 09:06 (74) 06/04/18 97.9 18 98 Room Air 07:30 Intake and Output 06/03/18 06/03/18 06/04/18 1515:00 23:00 07:00 IntakeIntake Total 1600 ml 300 ml OutputOutput Total 1200 ml 900 ml BalanceBalance 400 ml -600 ml Results Results 24hrs Laboratory Tests Test 06/04/18 06:08 Prothrombin Time 19.0 H Prothrombin Time Ratio 1.5 INR International Normalized Ratio 1.58 Medications Medication Current Medications Senna (Senokot) 1 tab HS PO Last administered on 05/31/18 19:58; Admin Dose 1 TAB; Start 05/21/18 at 21:00 Magnesium Hydroxide (Milk Of Mag) 30 ml BID PRN PO CONSTIPATION Last administered on 05/21/18 22:42; Admin Dose 30 ML; Start 05/21/18 at 19:00 Lactulose (Enulose) 20 gm DAILY PRN PO CONSTIPATION; Start 05/21/18 at 19:00 Bisacodyl (Dulcolax Supp) 10 mg DAILY PRN [place] CONSTIPATION; Start 05/21/18 at 19 :00 Acetaminophen (Tylenol Tab) 650 mg Q4H PRN PO PAIN; Start 05/21/18 at 19:00 Miscellaneous Information (Pending [facility] Order For Wound Care) This patient moreno... PRN PRN XX wound; Start 05/21/18 at 19:00 IV Flush (NS 3 ml) 3 ml PER PROTOCOL IV ; Start 05/21/18 at 22:08 Ondansetron HCl (Zofran Inj) 4 mg Q6H PRN IV NAUSEA AND/OR VOMITING; Start 05/21/18 at 22:08 Bisacodyl (Dulcolax) 5 mg DAILY PRN PO CONSTIPATION Last administered on 05/22/18 09:25; Admin Dose 5 MG; Start 05/21/18 at 22:08 Metoprolol Succinate (Toprol Xl) 25 mg BID PO Last administered on 05/31/18 09:28; Admin Dose 25 MG; Start 05/21/18 at 22:08 Amiodarone HCl (Cordarone) 200 mg DAILY PO Last administered on 06/04/18 09:05; Admin Dose 200 MG; Start 05/21/18 at 22:08 Naloxone HCl (Narcan) 0.2 mg Q2M PRN IV DECREASED REPIRATORY RATE; Start 05/21/18 at 22:08 Docusate Sodium (Colace) 100 mg BID PO Last administered on 06/04/18 09:07; Admin Dose 100 MG; Start 05/21/18 at 22:08 Warfarin Sodium (Coumadin) 2.5 mg SuTuThSa@1700 PO Last administered on 06/01/18 19:20; Admin Dose 2.5 MG; Start 05/23/18 at 17:00 Warfarin Sodium (Coumadin) 5 mg MoWeFr@1700 PO Last administered on 06/03/18 18:55; Admin Dose 5 MG; Start 05/22/18 at 17:00 Multivitamins/ Minerals (Theragran-M) 1 tab DAILY PO Last administered on 09:06; Admin Dose 1 TAB; Start 05/23/18 at 09:00 Ascorbic Acid (Vitamin C) 500 mg WITH DINNER PO Last administered on 06/03/18 17:26; Admin Dose 500 MG; Start 05/22/18 at 17:35 Zinc Sulfate (Zinc Sulfate) 220 mg DAILY PO Last administered on 06/04/18 09:05; Admin Dose 220 MG; Start 05/23/18 at 09:00 Folic Acid (Folic Acid) 1 mg DAILY PO Last administered on 06/03/18 08:48; Admin Dose 1 MG; Start 05/23/18 at 09:00 Tramadol HCl (Ultram) 50 mg Q6H PRN PO MODERATE PAIN LEVEL 4-6 Last administered on 06/01/18 13:04; Admin Dose 50 MG; Start 05/28/18 at 13:30 Famotidine (Pepcid) 20 mg DAILY PO Last administered on 06/04/18 09:05; Admin Dose 20 MG; Start 05/29/18 at 09:00 Oxycodone/ Acetaminophen (Percocet (5/ 325)) 1 tab Q4H PRN PO MODERATE PAIN LEVEL 4-6 Last administered on 06/04/18 09:38; Admin Dose 1 TAB; Start 06/01/18 at 13:00 ALEXIS OLIVIA NP Jun 04, 2018 10:50
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
[2018-06-04 14:00] VITALS: BP 104/59; PULSE 72; RESP 20
[2018-06-04] MEDS: BALSAM PERU/CASTOR OIL 60 GM TUBE TOP SCH ×2 (14:07→21:00)
--- NOTE | 2018-06-04 14:19 | NUR ---
Nursing Notes: Patient left hip incision still with jose ramon with dressing dry and intact. Based on the date of surgery ( 05/18/18 ) patient jose ramon due to be remove on 06/01/18 (Sunday ) RN called Dr. Castaneda yesterday but no response. RN follow up again the call and left message to Brit ( Staff of Dr. Castaneda ) to call RN in ARU in order to get order for removal of jose ramon and change dressing. Will wait for Dr. Castaneda's order.
[2018-06-04] MEDS: WARFARIN 5 MG TAB PO SCH (17:01)
[2018-06-04] MEDS: ASCORBIC ACID 500 MG TAB PO SCH (17:35)
[2018-06-04 20:00] VITALS: BP 102/59; PULSE 58; RESP 18
[2018-06-04 20:17] VITALS: BP 102/59; RESP 18
--- NOTE | 2018-06-04 20:30 | NUR ---
Pt do not want to remove jose ramon on the left hip incision tonight, he want to be done in the morning. When removing jose ramon, pictures to be taken before and after jose ramon removal, then apply steristrips. Pt refused to change his left heel dressing tonight. He want do the dressing in the morning.
[2018-06-04] MEDS: SENNA TAB PO SCH (21:00)
[2018-06-05] MEDS: OXYCODONE/ACETAMINOPHEN (5/325) TAB PO PRN ×5 (01:33→18:32)
[2018-06-05 02:00] VITALS: BP 116/56; PULSE 55; RESP 18
[2018-06-05 04:00] VITALS: BP 118/72; PULSE 62; RESP 18
--- NOTE | 2018-06-05 05:59 | NUR ---
Pt slept on and off during night hours, c/o pain over left hip, tablet Percocet 1 tablet by mouth Q4hrs prn x 3 times given last night. Vital signs stable. Pt want to lay on his back, he refused to turn position on his sides. Explained the risk of pressure injury, but still want to lay on his back and he says that he is comfortable on that position. Left hip dressing dry and intact. Continent for bladder and bowel, uses urinal for voiding, no BM noted. Pt is on low air loss mattress. Bed alarm activated for safety, call light and bedside table within reach.
[2018-06-05 07:30] VITALS: BP 107/67; PULSE 52; RESP 18
[2018-06-05] MEDS: ZINC SULFATE 220 MG CAP PO SCH (08:33)
[2018-06-05] MEDS: AMIODARONE 200 MG TAB PO SCH (08:33)
[2018-06-05] MEDS: FAMOTIDINE 20 MG TAB PO SCH (08:34)
[2018-06-05] MEDS: DOCUSATE SODIUM 100 MG CAP PO SCH ×2 (08:34→20:41)
[2018-06-05] MEDS: MULTIVITAMINS/MINERALS TAB PO SCH (08:34)
[2018-06-05] MEDS: BALSAM PERU/CASTOR OIL 60 GM TUBE TOP SCH ×2 (08:34→20:39)
[2018-06-05] MEDS: FOLIC ACID 1 MG TAB PO SCH (08:34)
[2018-06-05] MEDS: METOPROLOL (XL) 25 MG TAB PO SCH ×2 (08:34→20:38)
--- NOTE | 2018-06-05 08:48 | NUR ---
[facility] PT Weekly Summary Dates From: 05/28/18 to 06/04/18 Patient Name: AYANNA SCOTT Acct#: [id number] MR#: [id number] Height: 5 ft 7 in Weight: 176 lbs 5.917 oz 80.000 kg Reason for Visit: L HIP FRACTURE ORIF Precautions: fall risk, Lt WBAT Date: 06/04 Time: 0848 User: KASSY RENE Short-term Goals: Bed Mobility Mod A Transfers Mod A with least restrictive device Gait 25ft Mod A FWW WC mobility Min A 50ft Pt made excellent progress during his stay at [facility]. Pt currently demonstrates SBA for bed mobility, SBA for transfers, Mod Ind for WC mobility [id number], SBA/CGA for gait using FWW 90ft. Pt refused stairs. Pt met all STG's. Recommend: manual WC with swing away leg rests, home with HHPT and 24hr assistance. Cont POC and progress as tolerated.
--- NOTE | 2018-06-05 08:56 | PN ---
DATE: 06/05/2018 SUBJECTIVE: The patient is stable, no events overnight. OBJECTIVE: VITAL SIGNS: Blood pressure is 119/72, respirations 18, pulse 62, temperature is 97.6. HEENT: Head is normocephalic. NECK: Supple. HEART: Regular rate. LUNGS: Show diminished breath sounds at the base. ABDOMEN: Soft, nontender to palpation without rebound or guarding. EXTREMITIES: Negative for clubbing, cyanosis, no edema. DERMATOLOGIC: No rashes. MUSCULOSKELETAL: No joint effusion. NEUROLOGIC: No change in exam. MEDICATIONS: Reviewed. LABORATORY DATA: Laboratory data from 06/02/2018 was reviewed. ASSESSMENT AND PLAN: 1. Nonoliguric acute kidney injury on top of chronic kidney disease with previous baseline creatinin e of around 1.1 mg/dL. Etiology of acute kidney injury is secondary to hemodynamics. Renal function is stabilizing around creatinine of 1.2 to 1.3 mg/dL. We will continue current treatment plans, sup portive care, renally dose all medicines. 2. Anemia. Monitor hemoglobin and hematocrit levels. 3. Mineral bone disorder, monitor calcium and phosphorus levels. 4. Status post left hip arthroplasty. Continue to monitor. 5. Arrhythmia. Continue medical management. 6. History of diastolic heart failure. The patient is currently compensated. Continue current bessy tment plan. Dictated By: CHARLY WASHINGTON DO NR/NTS Conf#: [id number] DID#: [id number] CC: GALILEA CORDOBA MD; MIRIAM MART MD; ASHLEY SHAH MD;*EndCC*
--- NOTE | 2018-06-05 10:28 | NUR ---
[facility] OT Weekly Summary Dates From: 05/22/18 to 05/29/18 Patient Name: AYANNA SCOTT MR#: [id number] Height: 5 ft 7 in Weight: 176 lbs 5.917 oz 80.000 kg Reason for Visit: L HIP FRACTURE ORIF Precautions: WBAT on LLE , fall risk Date: 06/05/18 Time: 1028 User: CORNEL DOBBINS Short-term Goals: 1. Independent w/ Grooming 2. Mod A w/ Bathing 3. Independent / Min A w/ UB/LB dress 4. Mod A w/ Toileting 5. Mod A w/ Functional transfers Upon admission patient has the following functional levels: Grooming: Supervision, Bathing: Dependent (unsafe d/t pain level), UB/LB dressing: Min A/ Max A, Toileting: Dependent, Func Trans: Dependent (Max X 2). Pt making good progress towards OT short term goals through ADL retraining, NMRE, thera ex and activities, pt and cg education on safety. Pt is motivated to participate in therapy despite pain level. Barriers include: pain level and arousability (lethargic). Pt's current functional levels are: Grooming: SBA, Bathing: Max A, UB/LB dress: SBA/ Mod A, Toileting: Max A, Functional transfers:Mod A. Recommended equipment: Shower chair and commode.
--- NOTE | 2018-06-05 11:02 | PN ---
Date/Time of Note Date/Time of Note DATE: 06/05/18 TIME: 11:01 Assessment/Plan VTE Prophylaxis Risk score (from Ns)>0 risk: 9 SCD applied (from Ns): Yes Pharmacological prophylaxis: warfarin tx Lines/Catheters IV Catheter Type (from Nrs): Saline Lock Urinary Cath still in place: No Assessment/Plan Hospital Course SUBJECTIVE: No acute discomfort. OBJECTIVE: Vital signs-see below PHYSICAL EXAM: Constitutional: Well-developed, adequately built, lying in bed comfortably. Psych: nl mood/affect, no complaints Head: atraumatic, normocephalic Eyes: nl conjunctiva, nl sclera ENMT: mucosa pink and moist, nl external ears & nose Neck: non-tender, supple Respiratory: clear to auscultation, normal air movement Cardiovascular: nl pulses, regular rate and rhythm Gastrointestinal: non-tender, soft, bowel sounds active in all 4 quadrants. Musculoskeletal/extremities: LLE surgical site CDI. nl extremities to inspection, motor strength equal bilaterally, no focal deficit. Normal pulses,no cyanosis, no edema. Neurological: Alert oriented 3,nl speech, nl strength Skin: nl turgor ASSESSMENT/PLAN:77 yo male with h/o A Fib, CKD II, chronic diastolic CHF who suffered hip fracture now s/p ORIF Acute left femoral intertrochanteric fracture s/p mechanical fall. - s/p ORIF left hip - Continue PT/OT -Pain control BUDDY on CKD - Stable A Fib: - Continue amiodarone, Lopressor 25 BID, warfarin for AC Subtherapeutic INR -Approaching therapeutic -cont. Coumadin to 5 mg daily. -INR level daily anemia - Stable diastolic heart failure - euvolemic HTN - resume home meds DVT prophylaxis: On warfarin. Patient is seen in collaboration with Dr. Auguste Result Diagram: 06/02/18 0548 Results 24hrs Laboratory Tests Test 06/05/18 06:37 Prothrombin Time 22.4 H Prothrombin Time Ratio 1.8 INR International Normalized Ratio 1.96 Exam/Review of Systems Exam Vitals Vital Signs Date Temp Pulse Resp B/P (MAP) Pulse Ox O2 O2 Flow FiO2 Time Delivery Rate 06/05/18 98.6 52 18 107/67 97 Room Air 07:30 (80) Intake and Output 06/04/18 06/04/18 06/05/18 1515:00 23:00 07:00 IntakeIntake Total 860 ml 500 ml OutputOutput Total 420 ml 1250 ml BalanceBalance 440 ml -750 ml Results Results 24hrs Laboratory Tests Test 06/05/18 06:37 Prothrombin Time 22.4 H Prothrombin Time Ratio 1.8 INR International Normalized Ratio 1.96 Medications Medication Current Medications Senna (Senokot) 1 tab HS PO Last administered on 05/31/18 19:58; Admin Dose 1 TAB; Start 05/21/18 at 21:00 Magnesium Hydroxide (Milk Of Mag) 30 ml BID PRN PO CONSTIPATION Last administered on 05/21/18at 22:42; Admin Dose 30 ML; Start 05/21/18 at 19:00 Lactulose (Enulose) 20 gm DAILY PRN PO CONSTIPATION; Start 05/21/18 at 19:00 Bisacodyl (Dulcolax Supp) [address] [place] CONSTIPATION; Start 05/21/18 at 19:00 Acetaminophen (Tylenol Tab) 650 mg Q4H PRN PO PAIN; Start 05/21/18 at 19:00 Miscellaneous Information (Pending [facility] Order For Wound Care) This patient moreno... PRN PRN XX wound; Start 05/21/18 at 19:00 IV Flush (NS 3 ml) 3 ml PER PROTOCOL IV ; Start 05/21/18 at 22:08 Ondansetron HCl (Zofran Inj) 4 mg Q6H PRN IV NAUSEA AND/OR VOMITING; Start 05/21/18 at 22:08 Bisacodyl (Dulcolax) 5 mg DAILY PRN PO CONSTIPATION Last administered on 05/22/18at 09:25; Admin Dose 5 MG; Start 05/21/18 at 22:08 Metoprolol Succinate (Toprol Xl) 25 mg BID PO Last administered on 06/05/18 08:34; Admin Dose 25 MG; Start 05/21/18 at 22:08 Amiodarone HCl (Cordarone) 200 mg DAILY PO Last administered on 06/05/18 08 :33; Admin Dose 200 MG; Start 05/21/18 at 22:08 Naloxone HCl (Narcan) 0.2 mg Q2M PRN IV DECREASED REPIRATORY RATE; Start 05/21/18 at 22:08 Docusate Sodium (Colace) 100 mg BID PO Last administered on 06/05/18 08:34; Admin Dose 100 MG; Start 05/21/18 at 22:08 Multivitamins/ Minerals (Theragran-M) 1 tab DAILY PO Last administered on 06/05/18 08:34; Admin Dose 1 TAB; Start 05/23/18 at 09:00 Ascorbic Acid (Vitamin C) 500 mg WITH DINNER PO Last administered on 06/03/18 17:26; Admin Dose 500 MG; Start 05/22/18 at 17:35 Zinc Sulfate (Zinc Sulfate) 220 mg DAILY PO Last administered on 06/05/18 08:33; Admin Dose 220 MG; Start 05/23/18 at 09:00 Folic Acid (Folic Acid) 1 mg DAILY PO Last administered on 06/05/18 08:34; Admin Dose 1 MG; Start 05/23/18 at 09:00 Tramadol HCl (Ultram) 50 mg Q6H PRN PO MODERATE PAIN LEVEL 4-6 Last administered on 06/01/18 13:04; Admin Dose 50 MG; Start 05/28/18 at 13:30 Famotidine (Pepcid) 20 mg DAILY PO Last administered on 06/05/18 08:34; Admin Dose 20 MG; Start 05/29/18 at 09:00 Oxycodone/ Acetaminophen (Percocet (5/ 325)) 1 tab Q4H PRN PO MODERATE PAIN LEVEL 4-6 Last administered on 06/05/18 09:57; Admin Dose 1 TAB; Start 06/01/18 at 13:00 Warfarin Sodium (Coumadin) 5 mg DAILY@1700 PO Last administered on 06/04/18 17:01; Admin Dose 5 MG; Start 06/04/18 at 17:00 ALEXIS OLIVIA NP Jun 05, 2018 11:02
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
[2018-06-05 14:00] VITALS: BP 119/57; PULSE 62; RESP 18
--- NOTE | 2018-06-05 16:55 | NUR ---
Remove jose ramon on Left Hip incision. patient tolerated well. no s/sx of infection. no bleeding. leave open to air and applied steri strip.
[2018-06-05] MEDS: ASCORBIC ACID 500 MG TAB PO SCH (17:36)
[2018-06-05] MEDS: WARFARIN 5 MG TAB PO SCH (17:36)
--- NOTE | 2018-06-05 18:22 | PN ---
DATE: 06/05/2018 PSYCHOLOGY - INDIVIDUAL SESSION - [id number] This is a followup on a patient who was seen last week. The patient was seen in bed. The patient moreno s made progress. The patient is looking forward to leaving the hospital. There may be some obstacle s in him being able to leave when he would like. The patient has made progress and sees this. He is still very frustrated about all his medical problems and a little depressed, but he is willing to ta lk about it and this seemed to help him feel better. Dictated By: MADHU OLIVEIRA PHD RK/NO Conf#: [id number] DID#: [id number] CC: GALILEA CORDOBA MD; ASHLEY SHAH MD; MIRIAM MART MD;*EndCC*
[2018-06-05 19:18] VITALS: BP 117/61; PULSE 60; RESP 18
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
[2018-06-05] MEDS: SENNA TAB PO SCH (20:38)
[2018-06-05] MEDS: BISACODYL (EC) 5 MG TAB PO PRN (20:41)
[2018-06-06 02:00] VITALS: BP 112/68; PULSE 65; RESP 18
[2018-06-06] MEDS: OXYCODONE/ACETAMINOPHEN (5/325) TAB PO PRN ×3 (03:29→13:25)
--- NOTE | 2018-06-06 06:08 | NUR ---
PATIENT SLEPT WELL. MEDICATED WITH 1 PERCOCET PO FOR LT HIP PAIN WITH RELIEF. RECREATIONAL ACTIVITIES PROVIDED TO PATIENT; TV, PLAN TO D/C HOME TODAY. CALL LIGHT WITHIN REACH
[2018-06-06 07:00] VITALS: BP 118/56; PULSE 55; RESP 18
[2018-06-06] MEDS: FAMOTIDINE 20 MG TAB PO SCH (08:18)
[2018-06-06] MEDS: DOCUSATE SODIUM 100 MG CAP PO SCH (08:18)
[2018-06-06] MEDS: MULTIVITAMINS/MINERALS TAB PO SCH (08:18)
[2018-06-06] MEDS: ZINC SULFATE 220 MG CAP PO SCH (08:19)
[2018-06-06] MEDS: FOLIC ACID 1 MG TAB PO SCH (08:19)
[2018-06-06] MEDS: AMIODARONE 200 MG TAB PO SCH (08:22)
[2018-06-06] MEDS: METOPROLOL (XL) 25 MG TAB PO SCH (08:22)
[2018-06-06] MEDS: BALSAM PERU/CASTOR OIL 60 GM TUBE TOP SCH (08:28)
--- NOTE | 2018-06-06 09:33 | PN ---
DATE: 06/06/2018 SUBJECTIVE: The patient is stable. No events overnight. OBJECTIVE: VITAL SIGNS: Blood pressure is 112/68, respirations 18, pulse 65, temperature 98.5. HEENT: Head is normocephalic. NECK: Supple. HEART: Regular rate. LUNGS: Show diminished breath sounds at the base. ABDOMEN: Soft, nontender to palpation without rebound or guarding. EXTREMITIES: Negative for clubbing, cyanosis, no edema. DERMATOLOGIC: No rashes. MUSCULOSKELETAL: No joint effusions. NEUROLOGIC: No change in exam. MEDICATIONS: Reviewed. LABORATORY DATA: Reviewed. INR was reviewed. ASSESSMENT AND PLAN: 1. Nonoliguric acute kidney injury on top of chronic kidney disease with previous baseline creatinin e of around 1.1 mg/dL. Etiology of acute kidney injury is secondary to hemodynamics. Renal function is stabilized around creatinine of 1.2 to 1.3 mg/dL. We will continue current treatment plan and fo llow up BMP. 2. Anemia. Continue to monitor hemoglobin and hematocrit levels. 3. Mineral bone disorder. Monitor calcium and phosphorus levels. 4. Arrhythmia. Continue medical management. 5. History of diastolic heart failure, currently compensated. Continue to monitor. Dictated By: CHARLY WASHINGTON DO NR/NTS Conf#: [id number] DID#: [id number] CC: MIRIAM MART MD; ASHLEY SHAH MD; GALILEA CORDOBA MD;*EndCC*
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
--- NOTE | 2018-06-06 12:45 | NUR ---
Kei ALBA called and confirmed knowledge of service, discussed coumadin dosing and related blood draw. Per [facility] , they will call patient's primary MD for INR blood draw.
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
--- NOTE | 2018-06-06 14:21 | NUR ---
Discharge instructions discussed with patient with emphasis given on medications, MD follow up, diet, activity and symptoms to watch for. Patient verbalized understanding of instructions. Heplock dcd clear and intact. Coumadin offered prior to DC, patient opted to take Coumadin at home. Home Health informed of plan of care especially coumadin dosing and MD follow up. Patient went home in stable condition, all belongings sent home.
--- NOTE | 2018-06-06 15:15 | NUR ---
Went home in stable condition.
== END 2018-06-06 15:25 | disposition home health service (06) | DRG 560 ==
LOC: VRC 18:38
PROVIDERS: ADMIT Physical Medicine & Rehabilitation; ATTEND Internal Medicine Pulmonary Disease
PROC: F07Z5ZZ Bed Mobility Treatment (ICD-10-PCS; principal; 2018-05-21)
PROC: F08Z2ZZ Grooming/Personal Hygiene Treatment (ICD-10-PCS; 2018-05-21)
DX: S72.002D Fracture of unspecified part of neck of left femur, subsequent encounter for closed fracture with routine healing (principal); I13.0 Hypertensive heart and chronic kidney disease with heart failure and stage 1 through stage 4 chronic kidney disease, or unspecified chronic kidney disease; I50.30 Unspecified diastolic (congestive) heart failure; N17.9 Acute kidney failure, unspecified; M62.82 Rhabdomyolysis; D62 Acute posthemorrhagic anemia; W18.30XD Fall on same level, unspecified, subsequent encounter; G89.11 Acute pain due to trauma; I10 Essential (primary) hypertension; I48.91 Unspecified atrial fibrillation; N18.9 Chronic kidney disease, unspecified; T24.001D Burn of unspecified degree of unspecified site of right lower limb, except ankle and foot, subsequent encounter; E83.42 Hypomagnesemia; I49.9 Cardiac arrhythmia, unspecified; F06.31 Mood disorder due to known physiological condition with depressive features; Z79.01 Long term (current) use of anticoagulants
CPT/HCPCS: 80048; 80053; 80069; 81003; 82962; 83735; 84100; 85025; 85610; 87081; 87086; 97110; 97112; 97116; 97150; 97163; 97167; 97530; 97535; 97542; J1650; J2270; J2274; J2310; J2405; J7040

== ENCOUNTER 2018-08-19 13:57 | Emergency (ER) | payer MEDICARE, MEDICAID ==
[~2018-08-19] VITALS: Ht 170.2 cm; Wt 75.0 kg
[~2018-08-19 13:57] MED LIST changes: -ACET-820 PO; -ACET325T33 PO; -AMIO400T5 PO; -ASPI-817 PO; -CHOL200056 PO; -DIGO125T19 PO; -FURO20TA3 PO; -MAGN400T28 PO; -POTA10TA37 PO; -TEST1.25 TD; -TRAZ-111 PO
[2018-08-19 14:01] VITALS: Ht 170.2 cm; Wt 75.0 kg
--- NOTE | 2018-08-19 14:02 | ERD ---
ER Documentation Chief Complaint Chief Complaint left hip pain HPI The patient is a 77-year-old male, presenting to the ER because he accidentally fell off the bed while he was reaching for the competent from a [place] [facility]. He complains of occipital head pain, left hip pain and left foot pain. He denies syncope, near syncope, neck pain, chest pain, dyspnea, abdominal pain, vomiting. Past medical history: Hypertension, atrial fibrillation, chronic kidney disease, history of CHF Past surgical history: Left hip ORIF 1 month ago, PICC line in the right extremity for IV antibiotic for the back pressure sore for a week ROS All systems reviewed and are negative except as per history of present illness. Medications Home Meds Reported Medications Rzuedhilrhzv-Qwht-Apxcqblb,Iso (ZOSYN 3.375 GM GALAXY BAG) 3.375 Gm/50 Ml Froz.piggy, 3.375 GM IVPB TID, EA 08/19/18 Zinc Sulfate* (Zinc Sulfate*) 220 Mg Cap, 220 MG PO DAILY, CAP 08/19/18 Vitamin E Mixed* (Vitamin E*) 400 Unit Capsule, 400 UNIT PO DAILY, CAP 08/19/18 Acetaminophen with Codeine (Acetaminophen-Cod #3 Tablet) 1 Each Tablet, 1 TAB PO Q4H PRN for PAIN 4-02/13, #7 TAB 08/19/18 Thiamine* (Vitamin B-1*) 100 Mg Tablet, 100 MG PO DAILY, TAB 08/19/18 Collagenase* (Santyl*) 30 Gm Oint..gm., 1 APPLIC TOP .SOILED PRN for SOILED, #1 TUB 08/19/18 Protein Supplement (Promod) 946 Ml Liquid, 30 ML PO TID 08/19/18 Multivitamin with Minerals (Multivitamins with Minerals) 1 Each Tablet, 1 EACH PO DAILY, TAB 08/19/18 Metoprolol Tartrate* (Lopressor*) 25 Mg Tab, 25 MG PO BID, #60 TAB HOLD IF SBP<110 OR HR<60 08/19/18 Magnesium Oxide* (Magnesium Oxide*) 400 Mg Tablet, 400 MG PO DAILY, TAB 08/19/18 Furosemide* (Furosemide*) 20 Mg Tablet, 20 MG PO DAILY, #60 TAB 08/19/18 Folic Acid* (Folic Acid*) 1 Mg Tablet, 1 MG PO DAILY, TAB 08/19/18 [place]-3/Dha/Epa/Fish Oil (Fish Oil 500 mg Softgel) 1 Each Capsule, 2 EACH PO DAILY, CAP 08/19/18 Ferrous Sulfate* (Ferrous Sulfate*) 325 Mg Tabec, 325 MG PO BID, TAB 08/19/18 Famotidine* (Famotidine*) 20 Mg Tablet, 20 MG PO DAILY, #30 TAB 08/19/18 Digoxin* (Digitek*) 125 Mcg Tablet, 0.125 MG PO DAILY, TAB HOLD IF AP<60 08/19/18 Warfarin Sodium* (Coumadin*) 3 Mg Tablet, 3 MG PO QPM, TAB Q SUN,SUN,SAT,SUN. RE-CHECK INR IN 08/19/18. 08/19/18 Calcium Carbonate-Vitamin D3 (Calcium 500 + D Tablet) 1 Each Tablet, 1 TAB PO DAILY, TAB 08/19/18 Aspirin* (Aspirin* Chew) 81 Mg Tab.chew, 81 MG PO DAILY, TAB.CHEW 08/19/18 Ascorbic Acid (Vitamin C) 500 Mg Tab, 500 MG PO DAILY, TAB 08/19/18 Lactobacillus Acidophilus/Fos (Acidophilus Probiotic Tablet) 1 Each Tablet, 1 EACH PO TID, TAB 08/19/18 Amiodarone Hcl* (Amiodarone Hcl*) 200 Mg Tablet, 200 MG PO BID, #60 TAB 08/19/18 Pantoprazole* (Protonix*) 40 Mg Tablet.dr, 40 MG PO DAILY, TAB 05/15/18 Warfarin Sodium* (Coumadin*) 5 Mg Tablet, 5 MG PO QPM, TAB [id number]. RE-CHECK INR IN 08/19/18 05/15/18 Discontinued Reported Medications Warfarin Sodium* (Coumadin*) 2.5 Mg Tablet, 2.5 MG PO DAILY, TAB [id number]-. 05/15/18 Metoprolol Succinate* (Toprol XL*) 25 Mg Tab.sr.24h, 25 MG PO BID, #30 TAB 05/15/18 Discontinued Scripts Amiodarone Hcl* (Amiodarone Hcl*) 200 Mg Tablet, 200 MG PO DAILY for 30 Days, TAB Prov:JERARDO SANTIAGO 05/21/18 Allergies Allergies: Coded Allergies: No Known Allergy (Unverified , 08/19/18) PMhx/Soc History of Surgery: Yes Anesthesia Reaction: No Hx Neurological Disorder: No Hx Respiratory Disorders: Yes (1940) Hx Cardiac Disorders: No Hx Psychiatric Problems: No Hx Miscellaneous Medical Probl: No Hx Alcohol Use: Yes Hx Substance Use: No Hx Tobacco Use: Yes (quit 1969) Physical Exam Vitals Vital Signs Date Temp Pulse Resp B/P (MAP) Pulse Ox O2 O2 Flow FiO2 Time Delivery Rate 08/19/18 98.0 80 16 138/70 96 Room Air 19:43 (92) 08/19/18 98.0 84 16 141/65 96 Room Air 16:54 (90) 08/19/18 98.0 72 17 133/71 100 Room Air 15:45 (91) 08/19/18 98.0 69 17 147/64 100 Room Air 15:04 (91) 08/19/18 98.0 74 18 142/76 100 14:01 (98) Physical Exam Const: No acute distress. Head: Atraumatic. Eyes: Normal Conjunctiva. ENT: Normal External Ears, Nose and Mouth. Neck: Full range of motion. No meningismus. Resp: Clear to auscultation bilaterally. Cardio: Regular rate and rhythm. Abd: Soft, non distended, normal bowel sounds, non tender. Skin: No petechiae or rashes. Back: No midline or flank tenderness. back pressure sore Ext: No cyanosis, or edema. vague left hip tenderness, no skin violation. Left foot with vague tenderness Neur: Awake and alert. No focal deficit Psych: Normal Mood and Affect. Result Diagram: 08/19/18 1435 08/19/18 1435 Results 24 hrs Laboratory Tests Test 08/19/18 14:35 White Blood Count 4.8 10^3/ul Red Blood Count 3.10 10^6/ul Hemoglobin 10.0 g/dl Hematocrit 29.9 % Mean Corpuscular Volume 96.5 fl Mean Corpuscular Hemoglobin 32.3 pg Mean Corpuscular Hemoglobin Concent 33.4 g/dl Red Cell Distribution Width 13.3 % Platelet Count 131 10^3/UL Mean Platelet Volume 9.5 fl Immature Granulocytes % 0.600 % Neutrophils % 48.1 % Lymphocytes % 30.9 % Monocytes % 13.5 % Eosinophils % 6.1 % Basophils % 0.8 % Nucleated Red Blood Cells % 0.0 /100WBC Immature Granulocytes # 0.030 10^3/ul Neutrophils # 2.3 10^3/ul Lymphocytes # 1.5 10^3/ul Monocytes # 0.6 10^3/ul Eosinophils # 0.3 10^3/ul Basophils # 0.0 10^3/ul Nucleated Red Blood Cells # 0.0 10^3/ul Prothrombin Time 14.6 Sec Prothrombin Time Ratio 1.1 INR International Normalized Ratio 1.13 Activated Partial Thromboplast Time 30.0 Sec Sodium Level 143 mmol/L Potassium Level 3.4 mmol/L Chloride Level 108 mmol/L Carbon Dioxide Level 27 mmol/L Anion Gap 8 Blood Urea Nitrogen 20 mg/dl Creatinine 1.25 mg/dl Est Glomerular Filtrat Rate mL/min mL/min Glucose Level 126 mg/dl Calcium Level 10.1 mg/dl Current Medications Medications Dose Sig/Jim Start Time Status Last (Trade) Ordered Route PRN Stop Time Admin Dose Reason Admin 1 tab ONCE ONCE 08/19/18 DC 08/19/18 Acetaminophen PO 16:30 16:36 / 08/19/18 16:31 Hydrocodone Bitart ([place] ()) Ondansetron 4 mg ONCE STAT 08/19/18 DC 08/19/18 HCl (Zofran ODT 16:27 16:36 Odt) 08/19/18 16:28 Procedures/[place] [id number] Radiology Main Line: [phone] DIAGNOSTIC IMAGING REPORT Patient: AYANNA SCOTT : 1940 Age: 77 Sex: M [id number] DOS: 08/19/18 1442 Ordering MD: LAWANDA SAUCEDO MD Location: E/R Room/Bed: PROCEDURE: XR Left hip. CLINICAL INDICATION: Left hip pain TECHNIQUE: 2 views of the left hip were obtained. COMPARISON: Radiographs of the left hip May 18, 2018 FINDINGS: There is a ORIF of intertrochanteric left proximal femur fracture. There is slight varus angulation at the fracture line and there appears to be significant displacement of the greater trochanteric fracture fragment up to 2 cm.. There is no new fracture. There is no dislocation. The soft tissues appear grossly unremarkable. IMPRESSION: 1. ORIF across a subacute intertrochanteric left proximal femur fracture as above. No definite new fracture though if there is persistent clinical concern consider CT for further evaluation. RPTAT: UU .Justin Bautista MD, Date Time Electronically viewed and signed by .Justin Bautista MD, MD on 08/19/2018 15:44 .K/ CC: LAWANDA SAUCEDO MD [id number] [place] [address] Radiology Main Line: [phone] DIAGNOSTIC IMAGING REPORT Patient: AYANNA SCOTT : 1940 Age: 77 Sex: M MR #: [id number] DOS: 08/19/18 1414 Ordering MD: LAWANDA SAUCEDO MD Location: E/R Room/Bed: PROCEDURE: CT Brain without contrast. CLINICAL INDICATION: Headache TECHNIQUE: A CT of the brain was performed on a [employer] 64-slice CT scanner utilizing axial imaging from the skull base through the vertex without IV contrast. Multiplanar reformatted images were made. Images were reviewed on a PACS workstation. The CTDIvol is 38.3 mGy and the DLP is 634 mGycm. DICOM images are available. One or more of the following dose reduction techniques were utilized: 1.) Automated exposure control 2.) Adjustment of the mA +/- kV according to patient's size 3.) Use of iterative reconstruction technique. COMPARISON: May 15, 2018 FINDINGS: There is no intracranial hemorrhage, mass effect, or midline shift. No extra-a xial fluid collection is seen. There is diffuse cerebral volume loss with prominence of the cerebral sulci and lateral ventricles. Moderate periventricular white matter hypodensities are nonspecific but likely reflect chronic microvascular ischemic change. Harmon-white matter differentiation is preserved. The visualized paranasal sinuses and osseous structures are grossly unremarkable. Intracranial arterial vascular calcifications present. IMPRESSION: 1. No evidence of acute intracranial pathology. 2. Diffuse cerebral volume loss. 3. Periventricular white matter hypodensities are nonspecific but likely reflect chronic microvascular ischemic change. Physician José Luis Date Time Electronically viewed and signed by Miguel Colby Physician on 08/19/2018 15:40 ML/ CC: LAWANDA SAUCEDO MD [id number] [place] [address] Radiology Main Line: [phone] DIAGNOSTIC IMAGING REPORT Patient: AYANNA SCOTT : 1940 Age: 77 Sex: M MR #: [id number] DOS: 08/19/18 1414 Ordering MD: LAWANDA SAUCEDO MD Location: E/R Room/Bed: PROCEDURE: XR Left foot. CLINICAL INDICATION: Left foot pain TECHNIQUE: Three views of the left foot were obtained. COMPARISON: No prior studies are available for comparison. FINDINGS: There is no acute fracture or dislocation. There is a hallux valgus with moderate first metatarsophalangeal joint osteoarthrosis. There is also mild to moderate osteoarthrosis at the talonavicular joint and calcaneocuboid joint. There is mild calcaneal enthesopathy. There is osteopenia, soft tissue swelling, and vascular calcifications. IMPRESSION: 1. No radiographic evidence of acute osseous abnormality noting background osteopenia. 2. 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 3. Mild soft tissue swelling and vascular calcifications. RPTAT: UU .Justin Bautista MD, Date Time Electronically viewed and signed by .Justin Bautista MD, on 08/19/2018 15:41 .K/ CC: LAWANDA SAUCEDO MD [id number] MEDICAL MAKING DECISION: The patient is a 77-year-old male, presenting with acute left hip pain. He was treated with [place] 10 mg p.o. for pain and Zofran ODT for nausea and recommended to have a CT scan of the left hip to rule out acute fracture because the x-ray cannot be certain. He declined the CT scan. Risks include but not limited to and permanent disability The differential diagnoses considered include but are not limited to fracture, contusion, sprain, internal derangement Departure Diagnosis: Primary Impression: Left hip pain Additional Impression: Thrombocytopenia Condition: Stable Comments The patient signed out AGAINST MEDICAL ADVICE. Risks, benefits, alternatives were explained to the patient. Risks include but not limited to and permanent disability Disclaimer: Inadvertent spelling and grammatical errors are likely due to EHR /dictation software use and do not reflect on the overall quality of patient care. Also, please note that the electronic time recorded on this note does not necessarily reflect the actual time of the patient encounter. LAWANDA SAUCEDO MD Aug 19, 2018 14:02
[2018-08-19] MEDS ORDERED: AMIO200T4 PO (14:20)
[2018-08-19] MEDS ORDERED: ASC500 PO (14:21)
[2018-08-19] MEDS ORDERED: LACT1TAB21 PO (14:21)
[2018-08-19] MEDS ORDERED: ASPI-903 PO (14:22)
[2018-08-19] MEDS ORDERED: CALC-662 PO (14:23)
[2018-08-19] MEDS ORDERED: WARF3TAB PO (14:25)
[2018-08-19] MEDS ORDERED: DIGO125T PO (14:26)
[2018-08-19] MEDS ORDERED: FER325 PO (14:27)
[2018-08-19] MEDS ORDERED: FAMO20TA18 PO (14:27)
[2018-08-19] MEDS ORDERED: OMEG-144 PO (14:28)
[2018-08-19] MEDS ORDERED: FOLI-49 PO (14:29)
[2018-08-19] MEDS ORDERED: FURO20TA3 PO (14:29)
[2018-08-19] MEDS ORDERED: MAGN400T28 PO (14:30)
[2018-08-19] MEDS ORDERED: METO-448 PO (14:31)
[2018-08-19] MEDS ORDERED: MULT-105 PO (14:33)
[2018-08-19] MEDS ORDERED: PROT946L PO (14:34)
[2018-08-19] MEDS ORDERED: SAN30GM TOP (14:35)
[2018-08-19] MEDS ORDERED: THIA100T56 PO (14:36)
[2018-08-19] MEDS ORDERED: ACET1TAB40 PO (14:37)
[2018-08-19] MEDS ORDERED: VITA400C41 PO (14:38)
[2018-08-19] MEDS ORDERED: ZINC220C5 PO (14:39)
[2018-08-19] MEDS ORDERED: PIPE3.374 IVPB (14:39)
[2018-08-19] MEDS ORDERED: ONDANSETRON (ODT) 4 MG TAB ODT STA (16:27)
[2018-08-19] MEDS ORDERED: HYDROCODONE/APAP (10/325) TAB PO ONE (16:30)
[2018-08-19 19:43] VITALS: BP 138/70; PULSE 80; RESP 16
== END 2018-08-19 20:29 | disposition home or self-care (01) ==
LOC: E/R 13:57
DX: M25.552 Pain in left hip (principal); D69.6 Thrombocytopenia, unspecified; R51 Headache; Z79.82 Long term (current) use of aspirin; Z87.891 Personal history of nicotine dependence
CPT/HCPCS: 70450; 73510; 80048; 85025; 85610; 85730